=== PATIENT | male | born 1970 | race Caucasian/White ===

== ENCOUNTER → 2020-10-21 10:31 | Outpatient (BNVA) | payer MEDICAID, SELFPAY | PROVIDERS: PCP Internal Medicine; Visit Provider Surgery Vascular Surgery | DX: I83.11 Varicose veins of right lower extremity with inflammation (principal) | CPT/HCPCS: 99202 ==

== ENCOUNTER 2020-10-26 13:09 | Outpatient (REF) | payer MEDICAID, SELFPAY ==
--- NOTE | ~2020-10-26 | US_ITS ---
EXAMINATION: US VENOUS ULTRASOUND WITH DOPPLER LOWER EXTREMITY, BILATERAL CLINICAL INFORMATION: Varicose veins of right lower extremity with inflammation. COMPARISON: None TECHNIQUE: Bilateral lower extremity venous insufficiency ultrasound was performed with velocity measurements. Color-flow Doppler imaging was performed. Limited assessment of the deep system was performed as well. FINDINGS: There is no evidence of deep venous thrombosis within the visualized bilateral common femoral, mid femoral and popliteal veins. There is no evidence of reflux within the deep venous system. RIGHT SIDE: GREATER SAPHENOUS VEIN: The right saphenofemoral junction measures 0.8 cm. The reflux time is 1932 ms. Proximal thigh measures 0.6 cm. Reflux time is 0 ms. Mid thigh measures 0.5 cm. Reflux time is 3476 ms. Above-knee measures 0.6 cm. Reflux time is 3196 ms. At the knee measures 0.6 cm. Reflux time is 3212 ms. Below the knee measures 0.5 cm. Reflux time is 0 ms. Mid calf measures 0.3 cm. Reflux time is 0 ms. At the level of the ankle it measures 0.3 cm. Reflux time is 0 ms. SMALL SAPHENOUS VEIN: The upper right small saphenous vein measures 0.1 cm. Reflux time is 0 ms. The lower small saphenous vein measures 0.2 cm. Reflux time is 0 ms. There are several varicose veins identified. This includes a proximal varicosity to the great saphenous vein which measures 0.35 cm without significant reflux. There is a mid thigh varicosity from the great saphenous vein which measures 0.8 cm in diameter and has reflux time of 1256 ms. There are several varicosities at the knee, the largest measures 0.6 cm in diameter and has reflux time of 3336 ms. There are proximal calf varicosities which measure 0.4 cm and 0.34 cm in diameter with reflux times of 1844 ms and 3140 ms, respectively. There is a tiny accessory saphenous vein which measures 2 mm in diameter. Incidental note of a morphologically normal, though prominent right inguinal lymph node which measures 2.4 x 0.7 cm. LEFT SIDE: GREATER SAPHENOUS VEIN: The left saphenofemoral junction measures 0.5 cm. The reflux time is 0 ms. Proximal thigh measures 0.6 cm. Reflux time is 0 ms. Mid thigh measures 0.3 cm. Reflux time is 0 ms. Above-knee measures 0.3 cm. Reflux time is 0 ms. At the knee measures 0.5 cm. Reflux time is 3184 ms. Below the knee measures 0.4 cm. Reflux time is 580 ms. Mid calf measures 0.3 cm. Reflux time is 0 ms. At the level of the ankle it measures 0.3 cm. Reflux time is 0 ms. SMALL SAPHENOUS VEIN: The upper left small saphenous vein measures 0.2 cm. Reflux time is 0 ms. The lower small saphenous vein measures 0.2 cm. Reflux time is 0 ms. There is a 4 mm sandfill operator surface vein at the mid calf without demonstrable reflux. There is a proximal calf varicosity which measures 0.4 cm with reflux time of 1680 ms. There is a tiny accessory saphenous vein which measures 3 mm. In the left groin, there is a 1.9 x 0.7 cm lymph node. US/US venous duplex LE BI IMPRESSION: No evidence of deep venous thrombosis or deep venous reflux/venous insufficiency. On the right, there is reflux/venous insufficiency throughout the great saphenous vein from the level of the saphenofemoral junction to the knee. Multiple varicosities at the level of the thigh, knee and proximal calf are visualized, which demonstrate significant reflux. On the left, there is reflux/venous insufficiency within the mid to distal great saphenous vein about the level of the knee. There is at least one proximal calf varicosity which demonstrates significant reflux. Mildly prominent, though morphologically normal bilateral groin lymph nodes which may be reactive.
== END 2020-10-26 13:10 | disposition home or self-care (01) ==
LOC: HO.US 13:09
PROVIDERS: Visit Provider Surgery Vascular Surgery
DX: I83.11 Varicose veins of right lower extremity with inflammation (principal); I83.893 Varicose veins of bilateral lower extremities with other complications
CPT/HCPCS: 93970

== ENCOUNTER → 2020-11-09 10:50 | Outpatient (BNVA) | payer MEDICAID, SELFPAY | PROVIDERS: Visit Provider Surgery Vascular Surgery | DX: I83.11 Varicose veins of right lower extremity with inflammation (principal) | CPT/HCPCS: 99212 ==

== ENCOUNTER → 2020-11-12 08:14 | Outpatient (BNVA) | payer MEDICAID, SELFPAY | PROVIDERS: Visit Provider Surgery Vascular Surgery | DX: I83.11 Varicose veins of right lower extremity with inflammation (principal) | CPT/HCPCS: 36482; 36483 ==

== ENCOUNTER 2020-11-15 14:33 | Outpatient (REF) | payer MEDICAID, SELFPAY ==
--- NOTE | ~2020-11-15 | US_ITS ---
EXAMINATION: US VENOUS ULTRASOUND WITH DOPPLER LOWER EXTREMITY, RIGHT CLINICAL INFORMATION: Pain and swelling post venaseal COMPARISON: Previous exam 10/26/2020 TECHNIQUE: Ultrasound of the deep veins is performed from the hip to the calf with compression sonography and color and pulse Doppler assessment. Spectral analysis with color-flow imaging is performed. FINDINGS: There is normal venous compression and respiratory variation and augmented flow. The visualized common femoral vein, superficial femoral vein, profunda femoral vein, popliteal vein, and the trifurcation region shows no evidence of deep venous thrombosis. There is echogenic material seen in the right greater saphenous vein post venaseal procedure. This is 1.2 cm from the saphenofemoral junction. The right greater saphenous vein appears occluded. There is no popliteal fossa cyst. . US/US venous duplex LE RT IMPRESSION: No DVT demonstrated in the right lower extremity. Echogenic material in the right greater saphenous vein 1.2 cm from the saphenofemoral junction post venaseal procedure.
== END 2020-11-15 14:34 | disposition home or self-care (01) ==
LOC: HO.HMGCX 14:33
PROVIDERS: PCP Family Medicine; Visit Provider Surgery Vascular Surgery
DX: M79.604 Pain in right leg (principal); Z98.890 Other specified postprocedural states
CPT/HCPCS: 93971

== ENCOUNTER → 2020-12-16 10:56 | Outpatient (BNVA) | payer MEDICAID, SELFPAY | PROVIDERS: PCP Family Medicine; Visit Provider Surgery Vascular Surgery | DX: I83.11 Varicose veins of right lower extremity with inflammation (principal) | CPT/HCPCS: 99212 ==

== ENCOUNTER 2022-11-30 16:56 | Emergency (ER) | payer MEDICAID, SELFPAY ==
--- NOTE | ~2022-11-30 | US_ITS ---
EXAMINATION: US ABDOMEN LIMITED CLINICAL INFORMATION: Elevated LFTs.. COMPARISON: None available. TECHNIQUE: Real-time imaging of the right upper quadrant abdominal viscera. Color Doppler exam used. FINDINGS: PANCREAS: Pancreatic head and body visualized are normal. No mass or evidence of inflammation. Pancreatic duct is slightly prominent measuring 0.5 cm LIVER: Mild hepatomegaly. Right lobe of liver measures 20.2 cm. The liver contour is normal. Parenchymal echogenicity is normal. No focal hepatic lesion. There is no intrahepatic biliary duct dilatation seen. GALLBLADDER: Gallbladder is partially filled. Gallbladder wall thickened with pericholecystic fluid. No gallstones seen. Negative ultrasound Moon's sign. COMMON BILE DUCT: Normal in caliber measuring 0.3 cm in diameter. RIGHT KIDNEY: Mild fullness of the renal pelvis No hydronephrosis. No renal calculi or focal parenchymal lesions. The kidney measures 10.0 cm in maximum dimension. FREE FLUID: Small volume of abdominal ascites around the liver. This can account for the pericholecystic fluid and the Gallbladder wall thickening. US/US abdomen limited IMPRESSION: 1. Mild hepatomegaly. 2. Gallbladder wall thickening with pericholecystic fluid. No gallstones. Negative ultrasound Moon's sign. Findings are nonspecific. This could be related to the patient's liver disease. 3. Small volume of abdominal ascites around the liver.
--- NOTE | ~2022-11-30 | XR_ITS ---
EXAMINATION: XR CHEST CLINICAL INFORMATION: Hypertension COMPARISON: None available. TECHNIQUE: 2 views of the chest were obtained. FINDINGS: No significant abnormality is noted involving the heart, lungs, mediastinum, bony thorax or soft tissues. XR/XR chest 2V IMPRESSION: Unremarkable examination.
--- NOTE | ~2022-11-30 | US_ITS ---
EXAMINATION: US VENOUS ULTRASOUND WITH DOPPLER LOWER EXTREMITY, BILATERAL CLINICAL INFORMATION: Bilateral lower extremity pain and swelling COMPARISON: None available. TECHNIQUE: Ultrasound of the deep veins is performed from the hip to the calf with compression sonography and color and pulse Doppler assessment. Spectral analysis with color-flow imaging is performed. FINDINGS: RIGHT: There is normal venous compression and respiratory variation and augmented flow. The visualized common femoral vein, superficial femoral vein, profunda femoral vein, popliteal vein, and the trifurcation region shows no evidence of deep venous thrombosis. There is no significant popliteal fossa cyst. LEFT: There is normal venous compression and respiratory variation and augmented flow. The visualized common femoral vein, superficial femoral vein, profunda femoral vein, popliteal vein, and the trifurcation region shows no evidence of deep venous thrombosis. There is no significant popliteal fossa cyst. If the patient's symptoms persist, followup ultrasound in 5 days 7 days might be of value to exclude proximal propagation from a non-visualized calf vein. US/US venous duplex LE BI IMPRESSION: No DVT demonstrated in either lower extremity.
--- NOTE | 2022-11-30 17:08 | ED_ITS ---
HPI - Skin/Abscess/Foreign Bdy General Chief complaint: Extremity Injury, Lower <Mariam Rosales NP - Last Filed: 11/30/22 17:20> Stated complaint: Swollen Legs Infection? <Mariam Rosales NP - Last Filed: 11/30/22 17:20> Time Seen by Provider: 11/30/22 17:21 <Mariam Rosales NP - Last Filed: 11/30/22 17:20> Source: patient <Ingris Narayanan MD - Last Filed: 11/30/22 23:07> Mode of arrival: ambulatory <Ingris Narayanan MD - Last Filed: 11/30/22 23:07> Limitations: no limitations <Ingris Narayanan MD - Last Filed: 11/30/22 23:07> History of Present Illness HPI narrative: Patient comes to the emergency room complaining of lower extremity pain and swelling that started 1 week ago. Patient denies any trauma. Also, patient states that for the last 2 weeks, patient has been getting short of breath with exertion. 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 When he is doing his rounds, he feels short of breath after a few minutes walking. Patient denies any chest pain ever. Patient denies any nausea vomiting diarrhea, no URI or UTI symptoms, no abdominal pain. Patient admits to drinking alcohol daily. When patient arrived in triage, his blood pressure was in the 70s, when it was recheck in his room, it was in the mid 90s. Patient takes lisinopril daily for hypertension. <Ingris Narayanan MD - Last Filed: 11/30/22 23:07> Related Data Home medications: Home Medications Medication Instructions Recorded Confirmed buprenorphine 8 mg-naloxone 2 mg 1 film buccal Q24H 10/21/20 sublingual film (Suboxone) lisinopril 20 mg tablet 20 mg PO DAILY 10/21/20 naloxone 4 mg/actuation nasal 4 mg intranasal Q2M PRN 10/21/20 spray (Narcan) nicotine (polacrilex) 4 mg gum 4 mg buccal Q2H 10/21/20 trazodone 100 mg tablet 100 mg PO BEDTIME PRN 10/21/20 varenicline 0.5 mg tablet (Chantix) 0.5 mg PO DAILY 10/21/20 <Mariam Rosales NP - Last Filed: 11/30/22 17:20> Allergies/Adverse reactions: Allergies Allergy/AdvReac Type Severity Reaction Status Date / Time No Known Allergies Allergy Verified 11/30/22 17:08 <Mariam Rosales NP - Last Filed: 11/30/22 17:20> [facility] Past Medical History Medical History: Medical History Alcoholism Varicose veins of both lower extremities <Mariam Rosales NP - Last Filed: 11/30/22 17:20> Social History Social History: Social History Use of substances other than those prescribed or required for medical reasons: No Advance Directives: No Advance Directives Information Provided: Yes <Mariam Rosales NP - Last Filed: 11/30/22 17:20> Physical Exam Vital Signs: Vital Signs: Last Vital Signs Temp 97.2 F 11/30/22 17:09 Pulse 90 12/01/22 00:39 Resp 18 12/01/22 00:39 BP 100/67 12/01/22 00:39 Pulse Ox 96 12/01/22 00:39 O2 Del Method Room Air 12/01/22 00:39 BMI result Body Mass Index 20.6 <Mariam Rosales NP - Last Filed: 11/30/22 17:20> Vital Signs: Last Vital Signs Temp 97.2 F 11/30/22 17:09 Pulse 90 12/01/22 00:39 Resp 18 12/01/22 00:39 BP 100/67 12/01/22 00:39 Pulse Ox 96 12/01/22 00:39 O2 Del Method Room Air 12/01/22 00:39 BMI result Body Mass Index 20.6 <Ingris Narayanan MD - Last Filed: 11/30/22 23:07> Course Course Course Narrative: This is rapid medical exam. Deferred additional HPI, ROS, PE to primary provider. 52 yo male with history of HTN, varicose veins, OUD on suboxone, former IVDA here with bilateral leg swelling x 1 week. No shortness of breath, chest pain, fever. WIll obtain labs, venous US, covid screen. -blood pressure x2 hypotensive in triage. Patient reports and feeling very weak and tired. He does report to drinking alcohol today. He also still using crack but denies any current IV drug use. He does have a history of former IV drug use. Patient will be brought immediately back to the emergency room for further evaluation <Mariam Rosales NP - Last Filed: 11/30/22 17:20> Medications Administered Discontinued Medications Generic Name Dose Route Start Last Admin Trade Name Freq PRN Reason Stop Dose Admin Sodium Chloride 1,000 mls @ 999 mls/hr 11/30/22 17:31 11/30/22 17:41 Ns IVCONT 11/30/22 18:31 999 mls/hr .Q1H1M ONE Administration <Mariam Rosales NP - Last Filed: 11/30/22 17:20> Medications Administered Discontinued Medications Generic Name Dose Route Start Last Admin Trade Name Freq PRN Reason Stop Dose Admin Sodium Chloride 1,000 mls @ 999 mls/hr 11/30/22 17:31 11/30/22 17:41 Ns IVCONT 11/30/22 18:31 999 mls/hr .Q1H1M ONE Administration <Ingris Narayanan MD - Last Filed: 11/30/22 23:07> Medical Decision Making Medical Decision Making MDM Narrative: -ultrasound of lower extremities show no DVT, lower extremity is likely secondary to liver pathology. -patient has elevated LFTs and elevated lactic acid, sepsis not suspected. -patient's LFTs are elevated, likely secondary to alcohol abuse. Ultrasound does not show cirrhosis or any acute pathology. -I discussed the patient with Dr. Black who evaluated the patient. Patient does not need to be admitted, patient can follow up with Gastroenterology. Patient was given information for follow-up with GI <Ingris Narayanan MD - Last Filed: 11/30/22 23:07> Differential Diagnosis Differential Diagnoses: The differential diagnosis associated with the presentation includes (Hepatitis, cirrhosis, alcoholism) <nIgris Narayanan MD - Last Filed: 11/30/22 23:07> Admission/Observation Consideration of admission/observation: Escalation of care including admission/observation considered (I consider admitting the patient for GI follow-up. However after discussing the patient with Dr. Hoang, we determined that this can be done outpatient.) <Ingris Narayanan MD - Last Filed: 11/30/22 23:07> Consult Healthcare Provider Management of the patient was discussed with: Hospitalist <Ingris Narayanan MD - Last Filed: 11/30/22 23:07> Lab Data MDM Lab Attestation statement: I reviewed the patient's lab results. <Ingris Narayanan MD - Last Filed: 11/30/22 23:07> Result Diagrams: 11/30/22 17:36 11/30/22 17:36 <Mariam Rosales NP - Last Filed: 11/30/22 17:20> Labs: Lab Results 11/30/22 11/30/22 11/30/22 Range/Units 17:36 17:36 17:36 WBC 6.5 (4.8-10.8) X10*3/uL RBC 3.14 L (4.60-5.80) X10*6/uL Hgb 10.3 L (14.0-18.0) g/dl Hct 29.9 L (42.0-52.0) % MCV 95.2 (80.0-98.0) fL MCH 32.8 (27.0-33.0) pg MCHC 34.4 (31.0-36.0) g/dl RDW 16.6 H (11.0-16.0) % Plt Count 91 L (160-400) X10*3/uL MPV 11.3 (9.4-12.4) fL Immature Gran % (Auto) 1.7 H (0.0-0.4) % Neut % (Auto) 66.2 (45-73) % Lymph % (Auto) 18.0 L (20-40) % [place] % (Auto) 13.4 H (2-11) % Eos % (Auto) 0.2 (0-4) % Baso % (Auto) 0.5 (0-2) % Lymph # (Auto) 1.2 (1.2-4.9) X10*3/uL [place] # (Auto) 0.9 (0.1-1.2) X10*3/uL Eos # (Auto) 0.0 (0.0-0.4) X10*3/uL Baso # (Auto) 0.0 (0.0-0.2) X10*3/uL Abs Immat Gran (auto) 0.11 H (0.00-0.03) X10*3/uL Absolute Neuts (auto) 4.3 (2.0-8.3) x10*3/uL Absolute Nucleated RBC 0.000 (0.0-0.012) X10*3/uL Nucleated RBC % (auto) 0.0 (0.0-0.2) /100WBC Smear Tech's Comments VERIFIED Sodium 135 (135-145) mmol/L Potassium 3.7 (3.3-5.1) mmol/L Chloride 101 (96-108) mmol/L Carbon Dioxide 25 (22-29) mmol/L Anion Gap 13 (12-20) BUN 21 H (9-16) mg/dL Creatinine 0.88 (0.5-1.4) mg/dL Estim Creat Clear Calc 78.1 Estimated GFR > 60 Random Glucose 108 (60-115) mg/dL Lactic Acid (0.5-2.0) mmol/L Lactic Acid F/U @ 2Hr (0.5-2.0) mmol/L Calcium 8.1 L (8.4-10.2) mg/dL Magnesium 1.9 (1.6-2.6) mg/dL Total Bilirubin 10.6 H (0.0-1.0) mg/dL Direct Bilirubin 7.4 H (0.0-0.5) mg/dL AST 449 H (5-37) U/L ALT 208 H (0-40) U/L Alkaline Phosphatase 359 H (39-117) U/L Troponin I High Sens (<3.5-35.0) ng/L B-Natriuretic Peptide 71 (<100) pg/mL Total Protein 6.2 L (6.5-8.0) g/dL Albumin 2.1 L (3.5-5.0) g/dL COVID-19 (MYLA) (Negative) COVID-19 Clin Com Hepatitis A IgM Ab (Nonreactive) Hep Bs Antigen (Negative) Hep Bs Antibody (Nonreactive) Hep B Core Total Ab (Nonreactive) Hep B Core IgM Ab Hepatitis C Ab (EIA) (Nonreactive) 04/13/23 04/13/23 04/13/23 Range/Units 17:36 17:36 17:36 WBC (4.8-10.8) X10*3/uL RBC (4.60-5.80) X10*6/uL Hgb (14.0-18.0) g/dl Hct (42.0-52.0) % MCV (80.0-98.0) fL MCH (27.0-33.0) pg MCHC (31.0-36.0) g/dl RDW (11.0-16.0) % Plt Count (160-400) X10*3/uL MPV (9.4-12.4) fL Immature Gran % (Auto) (0.0-0.4) % Neut % (Auto) (45-73) % Lymph % (Auto) (20-40) % [place] % (Auto) (2-11) % Eos % (Auto) (0-4) % Baso % (Auto) (0-2) % Lymph # (Auto) (1.2-4.9) X10*3/uL [place] # (Auto) (0.1-1.2) X10*3/uL Eos # (Auto) (0.0-0.4) X10*3/uL Baso # (Auto) (0.0-0.2) X10*3/uL Abs Immat Gran (auto) (0.00-0.03) X10*3/uL Absolute Neuts (auto) (2.0-8.3) x10*3/uL Absolute Nucleated RBC (0.0-0.012) X10*3/uL Nucleated RBC % (auto) (0.0-0.2) /100WBC Smear Tech's Comments Sodium (135-145) mmol/L Potassium (3.3-5.1) mmol/L Chloride (96-108) mmol/L Carbon Dioxide (22-29) mmol/L Anion Gap (12-20) BUN (9-16) mg/dL Creatinine (0.5-1.4) mg/dL Estim Creat Clear Calc Estimated GFR Random Glucose (60-115) mg/dL Lactic Acid 3.2 H* (0.5-2.0) mmol/L Lactic Acid F/U @ 2Hr (0.5-2.0) mmol/L Calcium (8.4-10.2) mg/dL Magnesium (1.6-2.6) mg/dL Total Bilirubin (0.0-1.0) mg/dL Direct Bilirubin (0.0-0.5) mg/dL AST (5-37) U/L ALT (0-40) U/L Alkaline Phosphatase (39-117) U/L Troponin I High Sens 13.6 (<3.5-35.0) ng/L B-Natriuretic Peptide (<100) pg/mL Total Protein (6.5-8.0) g/dL Albumin (3.5-5.0) g/dL COVID-19 (MYLA) Negative (Negative) COVID-19 Clin Com See Note Hepatitis A IgM Ab (Nonreactive) Hep Bs Antigen (Negative) Hep Bs Antibody (Nonreactive) Hep B Core Total Ab (Nonreactive) Hep B Core IgM Ab Hepatitis C Ab (EIA) (Nonreactive) 11/30/22 11/30/22 Range/Units 21:07 21:07 WBC (4.8-10.8) X10*3/uL RBC (4.60-5.80) X10*6/uL Hgb (14.0-18.0) g/dl Hct (42.0-52.0) % MCV (80.0-98.0) fL MCH (27.0-33.0) pg MCHC (31.0-36.0) g/dl RDW (11.0-16.0) % Plt Count (160-400) X10*3/uL MPV (9.4-12.4) fL Immature Gran % (Auto) (0.0-0.4) % Neut % (Auto) (45-73) % Lymph % (Auto) (20-40) % [place] % (Auto) (2-11) % Eos % (Auto) (0-4) % Baso % (Auto) (0-2) % Lymph # (Auto) (1.2-4.9) X10*3/uL [place] # (Auto) (0.1-1.2) X10*3/uL Eos # (Auto) (0.0-0.4) X10*3/uL Baso # (Auto) (0.0-0.2) X10*3/uL Abs Immat Gran (auto) (0.00-0.03) X10*3/uL Absolute Neuts (auto) (2.0-8.3) x10*3/uL Absolute Nucleated RBC (0.0-0.012) X10*3/uL Nucleated RBC % (auto) (0.0-0.2) /100WBC Smear Tech's Comments Sodium (135-145) mmol/L Potassium (3.3-5.1) mmol/L Chloride (96-108) mmol/L Carbon Dioxide (22-29) mmol/L Anion Gap (12-20) BUN (9-16) mg/dL Creatinine (0.5-1.4) mg/dL Estim Creat Clear Calc Estimated GFR Random Glucose (60-115) mg/dL Lactic Acid (0.5-2.0) mmol/L Lactic Acid F/U @ 2Hr 3.5 H* (0.5-2.0) mmol/L Calcium (8.4-10.2) mg/dL Magnesium (1.6-2.6) mg/dL Total Bilirubin (0.0-1.0) mg/dL Direct Bilirubin (0.0-0.5) mg/dL AST (5-37) U/L ALT (0-40) U/L Alkaline Phosphatase (39-117) U/L Troponin I High Sens (<3.5-35.0) ng/L B-Natriuretic Peptide (<100) pg/mL Total Protein (6.5-8.0) g/dL Albumin (3.5-5.0) g/dL COVID-19 (MYLA) (Negative) COVID-19 Clin Com Hepatitis A IgM Ab Nonreactive (Nonreactive) Hep Bs Antigen Negative (Negative) Hep Bs Antibody REACTIVE (Nonreactive) Hep B Core Total Ab Reactive (Nonreactive) Hep B Core IgM Ab Cancelled Hepatitis C Ab (EIA) Reactive H (Nonreactive) <Mariam Rosales OIL DELIVERER - Last Filed: 11/30/22 17:20> Lab Results 11/30/22 11/30/22 11/30/22 Range/Units 17:36 17:36 17:36 WBC 6.5 (4.8-10.8) X10*3/uL RBC 3.14 L (4.60-5.80) X10*6/uL Hgb 10.3 L (14.0-18.0) g/dl Hct 29.9 L (42.0-52.0) % MCV 95.2 (80.0-98.0) fL MCH 32.8 (27.0-33.0) pg MCHC 34.4 (31.0-36.0) g/dl RDW 16.6 H (11.0-16.0) % Plt Count 91 L (160-400) X10*3/uL MPV 11.3 (9.4-12.4) fL Immature Gran % (Auto) 1.7 H (0.0-0.4) % Neut % (Auto) 66.2 (45-73) % Lymph % (Auto) 18.0 L (20-40) % [place] % (Auto) 13.4 H (2-11) % Eos % (Auto) 0.2 (0-4) % Baso % (Auto) 0.5 (0-2) % Lymph # (Auto) 1.2 (1.2-4.9) X10*3/uL [place] # (Auto) 0.9 (0.1-1.2) X10*3/uL Eos # (Auto) 0.0 (0.0-0.4) X10*3/uL Baso # (Auto) 0.0 (0.0-0.2) X10*3/uL Abs Immat Gran (auto) 0.11 H (0.00-0.03) X10*3/uL Absolute Neuts (auto) 4.3 (2.0-8.3) x10*3/uL Absolute Nucleated RBC 0.000 (0.0-0.012) X10*3/uL Nucleated RBC % (auto) 0.0 (0.0-0.2) /100WBC Smear Tech's Comments VERIFIED Sodium 135 (135-145) mmol/L Potassium 3.7 (3.3-5.1) mmol/L Chloride 101 (96-108) mmol/L Carbon Dioxide 25 (22-29) mmol/L Anion Gap 13 (12-20) BUN 21 H (9-16) mg/dL Creatinine 0.88 (0.5-1.4) mg/dL Estim Creat Clear Calc 78.1 Estimated GFR > 60 Random Glucose 108 (60-115) mg/dL Lactic Acid (0.5-2.0) mmol/L Lactic Acid F/U @ 2Hr (0.5-2.0) mmol/L Calcium 8.1 L (8.4-10.2) mg/dL Magnesium 1.9 (1.6-2.6) mg/dL Total Bilirubin 10.6 H (0.0-1.0) mg/dL Direct Bilirubin 7.4 H (0.0-0.5) mg/dL AST 449 H (5-37) U/L ALT 208 H (0-40) U/L Alkaline Phosphatase 359 H (39-117) U/L Troponin I High Sens (<3.5-35.0) ng/L B-Natriuretic Peptide 71 (<100) pg/mL Total Protein 6.2 L (6.5-8.0) g/dL Albumin 2.1 L (3.5-5.0) g/dL COVID-19 (MYLA) (Negative) COVID-19 Clin Com Hepatitis A IgM Ab (Nonreactive) Hep Bs Antigen (Negative) Hep Bs Antibody (Nonreactive) Hep B Core Total Ab (Nonreactive) Hep B Core IgM Ab Hepatitis C Ab (EIA) (Nonreactive) 11/30/22 11/30/22 11/30/22 Range/Units 17:36 17:36 17:36 WBC (4.8-10.8) X10*3/uL RBC (4.60-5.80) X10*6/uL Hgb (14.0-18.0) g/dl Hct (42.0-52.0) % MCV (80.0-98.0) fL MCH (27.0-33.0) pg MCHC (31.0-36.0) g/dl RDW (11.0-16.0) % Plt Count (160-400) X10*3/uL MPV (9.4-12.4) fL Immature Gran % (Auto) (0.0-0.4) % Neut % (Auto) (45-73) % Lymph % (Auto) (20-40) % [place] % (Auto) (2-11) % Eos % (Auto) (0-4) % Baso % (Auto) (0-2) % Lymph # (Auto) (1.2-4.9) X10*3/uL [place] # (Auto) (0.1-1.2) X10*3/uL Eos # (Auto) (0.0-0.4) X10*3/uL Baso # (Auto) (0.0-0.2) X10*3/uL Abs Immat Gran (auto) (0.00-0.03) X10*3/uL Absolute Neuts (auto) (2.0-8.3) x10*3/uL Absolute Nucleated RBC (0.0-0.012) X10*3/uL Nucleated RBC % (auto) (0.0-0.2) /100WBC Smear Tech's Comments Sodium (135-145) mmol/L Potassium (3.3-5.1) mmol/L Chloride (96-108) mmol/L Carbon Dioxide (22-29) mmol/L Anion Gap (12-20) BUN (9-16) mg/dL Creatinine (0.5-1.4) mg/dL Estim Creat Clear Calc Estimated GFR Random Glucose (60-115) mg/dL Lactic Acid 3.2 H* (0.5-2.0) mmol/L Lactic Acid F/U @ 2Hr (0.5-2.0) mmol/L Calcium (8.4-10.2) mg/dL Magnesium (1.6-2.6) mg/dL Total Bilirubin (0.0-1.0) mg/dL Direct Bilirubin (0.0-0.5) mg/dL AST (5-37) U/L ALT (0-40) U/L Alkaline Phosphatase (39-117) U/L Troponin I High Sens 13.6 (<3.5-35.0) ng/L B-Natriuretic Peptide (<100) pg/mL Total Protein (6.5-8.0) g/dL Albumin (3.5-5.0) g/dL COVID-19 (MYLA) Negative (Negative) COVID-19 Clin Com See Note Hepatitis A IgM Ab (Nonreactive) Hep Bs Antigen (Negative) Hep Bs Antibody (Nonreactive) Hep B Core Total Ab (Nonreactive) Hep B Core IgM Ab Hepatitis C Ab (EIA) (Nonreactive) 11/30/22 11/30/22 Range/Units 21:07 21:07 WBC (4.8-10.8) X10*3/uL RBC (4.60-5.80) X10*6/uL Hgb (14.0-18.0) g/dl Hct (42.0-52.0) % MCV (80.0-98.0) fL MCH (27.0-33.0) pg MCHC (31.0-36.0) g/dl RDW (11.0-16.0) % Plt Count (160-400) X10*3/uL MPV (9.4-12.4) fL Immature Gran % (Auto) (0.0-0.4) % Neut % (Auto) (45-73) % Lymph % (Auto) (20-40) % [place] % (Auto) (2-11) % Eos % (Auto) (0-4) % Baso % (Auto) (0-2) % Lymph # (Auto) (1.2-4.9) X10*3/uL [place] # (Auto) (0.1-1.2) X10*3/uL Eos # (Auto) (0.0-0.4) X10*3/uL Baso # (Auto) (0.0-0.2) X10*3/uL Abs Immat Gran (auto) (0.00-0.03) X10*3/uL Absolute Neuts (auto) (2.0-8.3) x10*3/uL Absolute Nucleated RBC (0.0-0.012) X10*3/uL Nucleated RBC % (auto) (0.0-0.2) /100WBC Smear Tech's Comments Sodium (135-145) mmol/L Potassium (3.3-5.1) mmol/L Chloride (96-108) mmol/L Carbon Dioxide (22-29) mmol/L Anion Gap (12-20) BUN (9-16) mg/dL Creatinine (0.5-1.4) mg/dL Estim Creat Clear Calc Estimated GFR Random Glucose (60-115) mg/dL Lactic Acid (0.5-2.0) mmol/L Lactic Acid F/U @ 2Hr 3.5 H* (0.5-2.0) mmol/L Calcium (8.4-10.2) mg/dL Magnesium (1.6-2.6) mg/dL Total Bilirubin (0.0-1.0) mg/dL Direct Bilirubin (0.0-0.5) mg/dL AST (5-37) U/L ALT (0-40) U/L Alkaline Phosphatase (39-117) U/L Troponin I High Sens (<3.5-35.0) ng/L B-Natriuretic Peptide (<100) pg/mL Total Protein (6.5-8.0) g/dL Albumin (3.5-5.0) g/dL COVID-19 (MYLA) (Negative) COVID-19 Clin Com Hepatitis A IgM Ab Nonreactive (Nonreactive) Hep Bs Antigen Negative (Negative) Hep Bs Antibody REACTIVE (Nonreactive) Hep B Core Total Ab Reactive (Nonreactive) Hep B Core IgM Ab Cancelled Hepatitis C Ab (EIA) Reactive H (Nonreactive) <Ingris Narayanan MD - Last Filed: 11/30/22 23:07> Discharge Plan Discharge Clinical Impression: Bilateral lower extremity edema, Elevated LFTs, Alcoholism <Mariam Rosales NP - Last Filed: 11/30/22 17:20> Patient Disposition: Home, Self-Care <Mariam Rosales NP - Last Filed: 11/30/22 17:20> Instructions: Leg Edema (ED) <Mariam Rosales NP - Last Filed: 11/30/22 17:20> Additional Instructions: Please follow-up with your primary care physician tomorrow. If you have any worsening or new symptoms, please return to the emergency room or call 911 <Mariam Rosales NP - Last Filed: 11/30/22 17:20> Referrals: Jose Jj MD [Physician] - 12/04/22 <Mariam Rosales NP - Last Filed: 11/30/22 17:20> Interventions: ED Discharge Assessment Last Done: 12/01/22 00:40 <Mariam Rosales NP - Last Filed: 11/30/22 17:20> Discharge Date/Time: 12/01/22 00:41 <Mariam Rosales NP - Last Filed: 11/30/22 17:20>
[2022-11-30 17:09] VITALS: BP 77/51; PULSE 103; RESP 18; TEMP 36.2; O2SAT 95; BMI 20.6
--- NOTE | 2022-11-30 17:17 | ECG_ITS ---
Test Reason : HYPOTENSIVE Blood Pressure : / mmHG Vent. Rate : 079 BPM Atrial Rate : 079 BPM P-R Int : 180 ms QRS Dur : 106 ms QT Int : 388 ms P-R-T Axes : 075 037 044 degrees QTc Int : 444 ms Normal sinus rhythm Low voltage QRS Nonspecific T wave abnormality Abnormal ECG No previous ECGs available Referred By: Mariam Rosales Electronically Signed By:KEMAL YANG MD
[2022-11-30] MEDS: 0.9 % Sodium Chloride 1,000 ML 999 ML IVCONT (17:41)
[2022-11-30 17:44] VITALS: BP 101/57; PULSE 86; RESP 14; O2SAT 94
[2022-11-30 17:48] LABS: Basophils Percent Auto 0.5 % (0-2); Eosinophils Percent Auto 0.2 % (0-4); Neutrophils Percent Auto 66.2 % (45-73); PLT CLUMP 1; SCAN SMEAR FLAG 1
[2022-11-30 17:49] LABS: Hematocrit 29.9 % (42.0-52.0); Hemoglobin 10.3 g/dl (14.0-18.0); Imm Gran Abs Auto 0.11 X10*3/uL (0.00-0.03); Imm Gran Pct Auto 1.7 % (0.0-0.4); Lymphocytes Absolute Auto 1.2 X10*3/uL (1.2-4.9); MANUAL DIFF FLAG SCAN; Mean Corpuscular HGB Conc 34.4 g/dl (31.0-36.0); Mean Corpuscular Hemoglobin 32.8 pg (27.0-33.0); Mean Corpuscular Volume 95.2 fL (80.0-98.0); Mean Platelet Volume 11.3 fL (9.4-12.4); Monocytes Absolute Auto 0.9 X10*3/uL (0.1-1.2); Monocytes Percent Auto 13.4 % (2-11); Neutrophils Absolute Auto 4.3 x10*3/uL (2.0-8.3); Red Blood Count 3.14 X10*6/uL (4.60-5.80); Red Cell Distribution Width 16.6 % (11.0-16.0)
[2022-11-30 17:58] LABS: Lactic Acid 3.2 mmol/L (0.5-2.0)
[2022-11-30 18:00] LABS: Alanine Aminotransferase 208 U/L (0-40); Albumin Level 2.1 g/dL (3.5-5.0); Alkaline Phosphatase 359 U/L (39-117); Anion Gap 13 (12-20); Aspartate Amino Transferase 449 U/L (5-37); Bilirubin Direct 7.4 mg/dL (0.0-0.5); Bilirubin Total 10.6 mg/dL (0.0-1.0); Blood Urea Nitrogen 21 mg/dL (9-16); Calcium 8.1 mg/dL (8.4-10.2); Carbon Dioxide 25 mmol/L (22-29); Chloride 101 mmol/L (96-108); Creatinine Clr Calc Pharmacy 78.1; Estimated Glomerular Filt Rate > 60; Glucose Random 108 mg/dL (60-115); Magnesium 1.9 mg/dL (1.6-2.6); Potassium 3.7 mmol/L (3.3-5.1); Sodium 135 mmol/L (135-145); Total Protein 6.2 g/dL (6.5-8.0)
--- NOTE | 2022-11-30 18:02 | PC.NURSE ---
Lower extremity pain, found to be hypotensive. Swelling noted to ankles and knees along with some bruising. IV established, labs drawn and sent. IV fluids infusing at this time. Ultrasound at bedside, call martino within reach
[2022-11-30 18:04] LABS: COVID-19 Test Negative (Negative); IDNOW Serial# BCCEAD1C
[2022-11-30 18:06] LABS: B Type Natriuretic Peptide 71 pg/mL (<100)
[2022-11-30 18:07] LABS: Troponin-I High Sensitivity 13.6 ng/L (<3.5-35.0)
[2022-11-30 18:08] LABS: Platelet Count 91 X10*3/uL (160-400); White Blood Count 6.5 X10*3/uL (4.8-10.8)
[2022-11-30 18:09] LABS: SLIDE REVIEW VERIFIED
--- NOTE | 2022-11-30 19:05 | PC.NURSE ---
Report received from Micheline FAULKNER.
[2022-11-30 19:23] VITALS: BP 105/61; PULSE 88; RESP 17; O2SAT 95
[2022-11-30 19:41] LABS: Reflex Lactate? Lactic Acid Added
[2022-11-30 20:55] VITALS: BP 104/57; BP 87/49; PULSE 106; PULSE 85
[2022-11-30 20:58] VITALS: BP 95/56; PULSE 95
[2022-11-30 21:00] VITALS: BP 95/56; PULSE 91; RESP 14; O2SAT 96
[2022-11-30 21:35] LABS: ~Lactic Acid-LAB USE ONLY 3.5 mmol/L (0.5-2.0)
[2022-11-30 23:13] LABS: Reflex Lactate? 2 Y
[2022-12-01 00:39] VITALS: BP 100/67; PULSE 90; RESP 18; O2SAT 96
[2022-12-01 09:11] LABS: HBS Num1 163.94 mIU/mL (0-7.99); HBc Num1 5.97 S/CO (0.00-0.79); HBsAGNum1 0.34 S/CO (0.00-0.99); Hepatitis A Antibody IgM 0.32 Index (0-0.79); Hepatitis B Surface Antigen Negative (Negative); ~HepC Num1 15.42 S/CO (0.00-0.79); ~Hepatitis A Antibody IgM Nonreactive (Nonreactive); ~Hepatitis B Surface Antibody REACTIVE (Nonreactive); ~Hepatitis C Antibody Reactive (Nonreactive)
[2022-12-01 11:07] LABS: HBc Num2 5.86 S/CO; HBc Num3 5.51 S/CO; Hepatitis B Core Antibody Reactive (Nonreactive)
== END 2022-12-01 00:41 | disposition home or self-care (01) ==
PROVIDERS: Nurse Practitioner Family; Emergency Provider Emergency Medicine; PCP Family Medicine
DX: R60.0 Localized edema (principal); R79.89 Other specified abnormal findings of blood chemistry; R06.02 Shortness of breath; R07.89 Other chest pain; R10.30 Lower abdominal pain, unspecified; F10.20 Alcohol dependence, uncomplicated; Y90.9 Presence of alcohol in blood, level not specified; Z20.822 Contact with and (suspected) exposure to COVID-19; Z20.828 Contact with and (suspected) exposure to other viral communicable diseases; Z79.899 Other long term (current) drug therapy
CPT/HCPCS: 36415; 71046; 76705; 80048; 80076; 83605; 83735; 83880; 84484; 85025; 86704; 86706; 86709; 86803; 87040; 87340; 87635; 93005; 93970; 99285

== ENCOUNTER 2023-04-22 15:51 | Inpatient (IN) | payer OTHER, SELFPAY ==
--- NOTE | ~2023-04-22 | CT_ITS ---
EXAMINATION: CT HEAD WITHOUT CONTRAST CLINICAL INFORMATION: Recent head trauma. New psychosis. COMPARISON: None. TECHNIQUE: Contiguous axial imaging was performed from the skullbase to vertex without intravenous administration of contrast. This CT examination was performed using dose optimization techniques as appropriate, variously including the following: *Automated exposure control *Adjustment of mA and/or kV according to patient size (this includes techniques or standardized protocols for targeted exams where dose is matched to indication/reason for exam; i.e. extremities or head) *Use of iterative reconstruction technique DLP: 644 mGy-cm. FINDINGS: There is no evidence of acute intracranial hemorrhage or territorial infarction. No abnormal mass effect or midline shift is seen. Mistry to white matter differentiation is well preserved. No extra-axial fluid collections are identified. There is mild generalized parenchymal volume loss for patient age. The ventricles are normal in size. There is no abnormal attenuation within the brain parenchyma. The osseous structures and soft tissues are normal. The mastoid air cells are well aerated. Retention cyst and mild mucosal thickening partially visualized in the right maxillary antrum. CT/CT head/brain wo IV con IMPRESSION: No acute intracranial pathology.
[2023-04-22 16:08] VITALS: BMI 21.6
[2023-04-22 16:30] VITALS: BP 155/94; PULSE 79; RESP 18; TEMP 36.9; O2SAT 99
[2023-04-22 18:06] LABS: Appearance Urine Clear; Color Urine Yellow; Glucose Urine UA Negative (Negative); Leukocyte Esterase Urine Negative (Negative); Nitrite Urine Negative (Negative); Urine Blood Negative (Negative); Urine Ketones Negative (Negative); Urine Protein Negative (Neg-Trace)
[2023-04-22 18:11] LABS: Bacteria Urine None Seen (None Seen); Hyaline Casts Urine 0-2 /LPF (0-2); RBC Urine 0-2 /HPF (0-2); Squamous Epithelial Cell Urine 0-2 /HPF (0-2); WBC Urine 0-5 /HPF (0-5)
[2023-04-22 18:18] LABS: Amphetamine Screen Urine Not Detected (Not Detect); Barbiturates, Urine Not Detected (Not Detect); Benzodiazepines Screen Urine Not Detected (Not Detect); Cannabinoid Screen Urine Not Detected (Not Detect); Cocaine Screen Urine POSITIVE (Not Detect); Fentanyl, urine Not Detected (Not Detect); Opiate Screen Urine Not Detected (Not Detect); Phencyclidine Screen Urine Not Detected (Not Detect)
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
[2023-04-22] MEDS: Docusate Sodium 100 MG CAPSULE PO (21:22)
[2023-04-22 21:23] VITALS: BP 157/83; PULSE 81; TEMP 36.8; O2SAT 94
[2023-04-22] MEDS: traZODone HCL 50 MG TABLET PO (21:56)
--- NOTE | 2023-04-23 07:14 | PC.NURSE ---
drug paraphernalia kit-clean, unused kit taken by security and disposed of.
[2023-04-23 07:41] LABS: Alanine Aminotransferase 18 U/L (0-40); Albumin Level 3.2 g/dL (3.5-5.0); Alkaline Phosphatase 68 U/L (39-117); Anion Gap 8 (12-20); Aspartate Amino Transferase 24 U/L (5-37); Bilirubin Total 0.2 mg/dL (0.0-1.0); Blood Urea Nitrogen 14 mg/dL (9-16); Calcium 9.5 mg/dL (8.4-10.2); Carbon Dioxide 30 mmol/L (22-29); Chloride 104 mmol/L (96-108); Cholesterol 126 mg/dL (<200); Creatinine Clr Calc Pharmacy 90.1; Estimated Glomerular Filt Rate > 60; Glucose Fasting 98 mg/dL (60-99); HDL Cholesterol 35 mg/dL (>40); LDL Cholesterol Calculated 62 mg/dL (<100); Potassium 4.1 mmol/L (3.3-5.1); Sodium 138 mmol/L (135-145); Total Protein 6.5 g/dL (6.5-8.0); Triglycerides 147 mg/dL (<150)
[2023-04-23 07:55] LABS: Thyroid Stimulating Hormone 2.28 uIU/mL (0.32-4.0)
--- NOTE | 2023-04-23 08:27 | P.HPPS_ITS ---
HPI Date of Service: 04/23/23 Chief Complaint: Unspecified anxiety disorder Sources of Information: patient interviewed, chart reviewed and crisis/core team assessment reviewed HPI Subjective Notes: Conditional Voluntary Healthcare Proxy: No Guardianship: No Medical Problems Affecting Mental Status: No Narrative: Jacque is a 53-year-old , single, father of 2. This is his 1st psychiatric admission. 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 He is 100% convinced that these are happening and not imagined. He does have history of heroin use and dependence but has been heroin free for 3 years and is on Suboxone 03/21 t.i.d.. In the past 3 months he has been using c rack cocaine and when questioned whether he would consider that it may be related to that he was adamantly against that belief. He is not on any psychotropics and has not been in the past. He denies any other substances including alcohol. Prior to going to the emergency room he asked somebody in a restaurant to call an ambulance because he was having thoughts of going to a bridge in jumping off. No prior history of suicide attempts. He has been eating and sleeping adequately. He denies any recent triggers or stressors. Because of his condition he lost his job and was unable to pay his rent and he has been homeless. Past Psychiatric History: None Medical Evaluation Reviewed: Hospitalist Feroz Pending [facility] Medical History (Updated 04/23/23 @ 08:40 by Emerson Euceda MD) Alcoholism Heroin addiction Varicose veins of both lower extremities Narrative: Hypertension that is intermittently treated with Lasix and lisinopril when he picks up the prescriptions. Family History: None known Social History: He is 1 of 3 siblings. He was born and raised in [place]. His parents are both alive and live in [place]. He denies any history of abuse. He dropped out of school at 11th grade and has been in the [place]. He has 2 children that he has nothing to do with and does not know where they live. He has never . 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 He was unable to pay his rent and lost his apartment and has been homeless. Substance History: Heroin-in remission crack cocaine in the past 3 months Trauma History: None Diagnostics Vital Signs (24Hr): Vital Signs - 24 hr 04/22/23 16:30 04/22/23 21:23 Temperature 98.4 F 98.3 F Pulse Rate 79 81 Respiratory Rate 18 Blood Pressure 155/94 H 157/83 H Pulse Oximetry 99 94 Oxygen Delivery Method Room Air Room Air BMI result Body Mass Index 21.6 Labs 04/23/23 07:08 Labs: Laboratory Results - last 48 hr 04/22/23 04/22/23 04/23/23 17:45 17:45 07:08 Sodium 138 Potassium 4.1 Chloride 104 Carbon Dioxide 30 H Anion Gap 8 L BUN 14 Creatinine 0.79 Estim Creat Clear Calc 90.1 Estimated GFR > 60 Fasting Glucose 98 Calcium 9.5 D Total Bilirubin 0.2 AST 24 ALT 18 Alkaline Phosphatase 68 Total Protein 6.5 Albumin 3.2 L Triglycerides 147 Cholesterol 126 LDL Cholesterol, Calc 62 HDL Cholesterol 35 L TSH 2.28 Urine Color Yellow Urine Appearance Clear Urine pH 7.0 Ur Specific [place] 1.020 Urine Protein Negative Urine Glucose (UA) Negative Urine Ketones Negative Urine Blood Negative Urine Nitrite Negative Ur Leukocyte Esterase Negative Urine RBC 0-2 Urine WBC 0-5 Ur Squamous Epith Cells 0-2 Urine Bacteria None Seen Hyaline Casts 0-2 Urine Opiates Screen Not Detected Urine Fentanyl Screen Not Detected Ur Barbiturates Screen Not Detected Ur Phencyclidine Scrn Not Detected Ur Amphetamines Screen Not Detected U Benzodiazepines Scrn Not Detected Urine Cocaine Screen POSITIVE H U Marijuana (THC) Screen Not Detected Meds/Allergies Meds Home Medications Medication Instructions Recorded Confirmed Type buprenorphine 8 mg-naloxone 2 mg 1 film buccal Q24H 10/21/20 History sublingual film (Suboxone) lisinopril 20 mg tablet 20 mg PO DAILY 10/21/20 History naloxone 4 mg/actuation nasal 4 mg intranasal Q2M PRN 10/21/20 History spray (Narcan) nicotine (polacrilex) 4 mg gum 4 mg buccal Q2H 10/21/20 History trazodone 100 mg tablet 100 mg PO BEDTIME PRN 10/21/20 History varenicline 0.5 mg tablet (Chantix) 0.5 mg PO DAILY 10/21/20 History Allergies Allergies Allergy/AdvReac Type Severity Reaction Status Date / Time No Known Allergies Allergy Verified 11/30/22 17:08 Mental Status Exam Mental Status Exam Narrative: In today's visit he was seen for his admission evaluation the day after he was admitted. He was seen with the help of an machinist supervisor because he speaks very little [place]. He is pleasant, cooperative and able to respond appropriately to questions. He was very adamant about his current experiences as being real and wanting to be ?hurt?. He does not believe that it may be related to his crack cocaine use. Speech is normal. No eye contact. Affect is appropriate. Moderate anxiety present. No acute signs of psychosis. Paranoid ideations and delusions present. He admits to having had suicidal ideations but denies any active ideations currently and is safe on the unit. No homicidal ideations. Cognitively appears to be intact on gross observation. Judgment is mostly intact. Assessment & Plan Assessment & Plan (1) Paranoia: Status: Acute Code(s): F22 - Delusional disorders (2) Crack cocaine use: Status: Acute Code(s): F14.90 - Cocaine use, unspecified, uncomplicated Plan In [place] meets criteria for hospital level of care for safety and treatment. Admission workup to be done. He will meet with his treatment team on 04/24/23. We discussed medication options and he was reluctantly accepting of a trial of Risperdal which we discussed including side effects. He did not believe that any medication could change his belief on the reality of the situation etc.. Patient educated on: diagnosis, medication risk/benefits and substance abuse Reason for continued inpatient stay Substantial Risk for: harm to self Statement Statement: I have reviewed the history and physical and performed a pertinent examination on my patient. No changes have occurred unless specified. If the History and Physical was not performed prior to admission, the Hospitalist's service will be consulted for completing the admission physical. Time Spent With Patient Time: Total time managing care of this patient today ____ minutes.
[2023-04-23] MEDS: Docusate Sodium 100 MG CAPSULE PO ×2 (08:43→21:49)
[2023-04-23] MEDS: Buprenorphine/Naloxone 8/2 mg FILM 1 FILM SUBLINGUAL ×3 (08:45→18:15)
[2023-04-23 08:55] VITALS: BP 135/96; PULSE 62; RESP 16; TEMP 37.3; O2SAT 96
--- NOTE | 2023-04-23 11:36 | HO.PM.IMCN ---
History of Present Illness Data of Consult Service Date: 04/23/23 Requesting physician: Emerson Euceda Primary Care Provider: [facility] HPI Reason for consult: medical H&P 53-year-old male with history of hypertension, history of hepatitis-C treated, history of alcohol use disorder in sustained remission, opioid dependence on Suboxone, and recent crack cocaine use admitted to Psychiatry with consult placed to hospital service for medical H and P. He has no complaints at this time. He does report smoking 12 cigarettes on a daily basis but declines any nicotine replacement therapy. He is on Lasix, spironolactone, and lactulose but denies any history of cirrhosis. Hepatic panel at [facility] ED was within normal limits as were hematology studies, renal function, electrolyte levels. Urine tox screen was positive for cocaine. Per nursing staff, darya has had several falls in the last 6 months. No significant injury. He is also reporting urinary urgency and decreased urine output per nursing. Review of Systems Review of Systems: General: No fevers, malaise, unintentional weight loss HEENT: No blurred vision, diplopia. No sore throat, nasal congestion, rhinorrhea, sinus pain, ear pain Cardiovascular: No chest pain, palpitations, or leg edema Respiratory: No shortness of breath, wheezing, cough GI: No abdominal pain, nausea, vomiting, diarrhea, constipation, melena, hematochezia : No dysuria, hematuria, increased urinary frequency, decreased urinary output MSK: No myalgia, back pain Neuro: No headaches, weakness, paresthesias Skin: No rashes or lesions [facility] Medical History Alcoholism Crack cocaine use Heroin addiction History of hepatitis C Hypertension Varicose veins of both lower extremities Social History Household Members: None Housing: Homeless Do you presently have visiting nurse or other home services: No Patient Tobacco Use Status: Current everyday Tobacco user Tobacco use type: Cigarette Cigarettes Per Day: 12 Patient Interested in Nicotine Replacement: No Patient Given Instructions on How to Stop Smoking: No Second Hand Smoke Exposure: No Use of substances other than those prescribed or required for medical reasons: Yes Substance Use Type: Crack/Cocaine Substance Use Frequency: Daily Last Used Substance: Days (ago) Last Used Substance Other:: 5 days ago Currently Displaying Signs/Symptoms of Drug Intoxication Withdrawal: No Any prior treatment program specific to substance use: No Have you been hit, kicked, punched, or otherwise hurt by someone within the past year? If so, by whom?: No Do you feel safe in your current relationship?: No Current Relationship Is there a partner from a previous relationship who is making you feel unsafe now?: No Are you made to feel afraid or neglected: No Advance Directives: No Advance Directives Information Provided: No Do you have thoughts of harming others: None Do you have a plan to hurt others: No Plan Recently lost weight without trying: No Eating poorly because of decreased appetite: No Nutrition Risks: Dental problems Poor oral hygiene: Yes service: No Sexual orientation: Unable to collect Meds Allergies Allergy/AdvReac Type Severity Reaction Status Date / Time No Known Allergies Allergy Verified 11/30/22 17:08 Active Medications: Current Medications Acetaminophen (Acetaminophen 325 Mg Tablet) 650 mg PO Q6H PRN PRN Reason: Headache/Pain Mild Scale (1-3) Al Hydroxide/Mg Hydroxide (Magnesium Hydrox/Alum Hydrox 30 Ml Oral.Susp) 30 ml PO Q6H PRN PRN Reason: Heartburn/Nausea Buprenorphine/Naloxone (Buprenorphine/Naloxone 8/2 Mg Film) 1 film SUBLINGUAL TID@0900,1300,1800 [facility] Last Admin: 04/23/23 08:45 Dose: 1 film Docusate Sodium (Docusate Sodium 100 Mg Capsule) 100 mg PO BID [facility] Last Admin: 04/23/23 08:43 Dose: 100 mg Hydroxyzine HCl (Hydroxyzine Hcl 25 Mg Tablet) 25 mg PO Q6H PRN PRN Reason: Anxiety Magnesium Hydroxide (Milk Of Magnesia 30 Ml Oral.Susp) 30 ml PO DAILY PRN PRN Reason: Constipation Nicotine Polacrilex (Nicotine Polacrilex 2 Mg Gum) 2 mg BUCCAL Q2H PRN PRN Reason: Nicotine Cravings Risperidone (Risperidone 1 Mg Tablet) 1 mg PO BEDTIME YULIET Trazodone HCl (Trazodone Hcl 50 Mg Tablet) 50 mg PO BEDTIME MRX1 PRN PRN Reason: Insomnia Last Admin: 04/22/23 21:56 Dose: 50 mg Home Medications Medication Instructions Recorded Confirmed Last Taken Type buprenorphine 8 mg-naloxone 2 mg 1 film buccal Q24H 10/21/20 Unknown History sublingual film (Suboxone) lisinopril 20 mg tablet 20 mg PO DAILY 10/21/20 Unknown History naloxone 4 mg/actuation nasal 4 mg intranasal Q2M PRN 10/21/20 Unknown History spray (Narcan) nicotine (polacrilex) 4 mg gum 4 mg buccal Q2H 10/21/20 Unknown History trazodone 100 mg tablet 100 mg PO BEDTIME PRN 10/21/20 Unknown History varenicline 0.5 mg tablet (Chantix) 0.5 mg PO DAILY 10/21/20 Unknown History Physical Exam Vital Signs and Narrative: Vital Signs: Last Vital Signs Temp 99.1 F 04/23/23 08:55 Pulse 62 04/23/23 08:55 Resp 16 04/23/23 08:55 BP 135/96 H 04/23/23 08:55 Pulse Ox 96 04/23/23 08:55 O2 Del Method Room Air 04/23/23 08:55 BMI result Body Mass Index 21.6 Constitutional - Awake and Alert, No apparent distress Eyes - PERRLA, EOMI Cardiovascular - S1S2, RRR, No edema Respiratory - Normal lung expansion, Normal respiratory effort, No respiratory distress, CTA bilaterally Gastrointestinal - NT / ND; +BS; No rebound or guarding Extremities - no calf tenderness bilaterally, no swelling Musculoskeletal - Normal inspection, normal ROM Skin - Warm/Dry Neurological - Alert & oriented x3, CN II-XII in tact, 5/5 strength BUE and BLE, gait/balance normal Psychological - Appropriate affect Results Labs 04/23/23 07:08 Labs: Laboratory Results - last 24 hr 04/22/23 04/22/23 04/23/23 17:45 17:45 07:08 Anion Gap 8 L Estim Creat Clear Calc 90.1 Estimated GFR > 60 Fasting Glucose 98 Calcium 9.5 D Total Bilirubin 0.2 AST 24 ALT 18 Alkaline Phosphatase 68 Total Protein 6.5 Albumin 3.2 L Triglycerides 147 Cholesterol 126 LDL Cholesterol, Calc 62 HDL Cholesterol 35 L TSH 2.28 Urine Color Yellow Urine Appearance Clear Urine pH 7.0 Ur Specific [place] 1.020 Urine Protein Negative Urine Glucose (UA) Negative Urine Ketones Negative Urine Blood Negative Urine Nitrite Negative Ur Leukocyte Esterase Negative Urine RBC 0-2 Urine WBC 0-5 Ur Squamous Epith Cells 0-2 Urine Bacteria None Seen Hyaline Casts 0-2 Urine Opiates Screen Not Detected Urine Fentanyl Screen Not Detected Ur Barbiturates Screen Not Detected Ur Phencyclidine Scrn Not Detected Ur Amphetamines Screen Not Detected U Benzodiazepines Scrn Not Detected Urine Cocaine Screen POSITIVE H U Marijuana (THC) Screen Not Detected Assessment and Plan (1) Routine medical exam: Status: Acute Plan 53-year-old male with history of hypertension, history of hepatitis-C treated, history of alcohol use disorder in sustained remission, opioid dependence on Suboxone, and recent crack cocaine use admitted to Psychiatry with consult placed to hospital service for medical H and P. #Paranoia/mood disorder -plan per psychiatry #polysubstance abuse -plan per psychiatry -continue suboxone #HTN -bp reasonably controlled -continue lasix, spironolactone, and lisinopril # recent falls -?r/t substance use -Gait/balance normal without ataxia #Lower urinary tract symptoms -UA unremarkable -suspect r/t BPH -Pt did not report urinary symptoms to me, but did report to nursing -Consider adding tamsulosin 0.4 mg daily if continues reporting symptoms -otherwise outpatient follow-up #Nicotine dependence -declines nrt -smoking cessation counseling Thank you for allowing me to participate in this consult. Signing off at this time. Please do not hesitate to call for further questions. Time Spent With Patient Time: Total time managing care of this patient today ____ minutes.
[2023-04-23 20:35] VITALS: BP 135/79; PULSE 75; RESP 16; TEMP 36.8; O2SAT 99
[2023-04-23] MEDS: risperiDONE 1 MG TABLET PO (21:49)
[2023-04-24 06:00] VITALS: BP 114/76; PULSE 70; RESP 18; TEMP 37.4; O2SAT 97
[2023-04-24] MEDS: lisinopriL 10 MG TABLET PO (09:25)
[2023-04-24] MEDS: Buprenorphine/Naloxone 8/2 mg FILM 1 FILM SUBLINGUAL ×3 (09:25→18:57)
[2023-04-24] MEDS: Docusate Sodium 100 MG CAPSULE PO ×2 (09:25→21:34)
--- NOTE | 2023-04-24 16:15 | HO.PSYCHPN ---
Subjective Subjective Date of Service: 04/24/23 Reason For Visit: Unspecified anxiety disorder Interim History: seen with greige mender. discussing recent Hx of people taking pictures of him, kids crying when they see him, experiencing menace and animosity from strangers. he seems to indicate that that has not happened here on [facility], but that it did happen somewhat at [facility] ED before he got here. reported that such Sx have been occurring for 22 days. once cocaine use was broached, he reported that these symptoms started long before his cocaine use (cocaine use reportedly began about a month ago). he agreed to stay for several days and get sleep and take some medication. per staff, calm, pleasant, cooperative. paranoid delusions. loose associations. isolative, withdrawn. Mental Status Exam Mental Status Exam Narrative: thin, spry. adequately dressed and groomed in street clothes. cooperative. no PMA/PMR. speech incr rate and amount. nml loudness, latency. thoughts digressive and tangential; paranoid delusions. affect hyper-intense, non-labile. no SI/HI/AVH expressed. Diagnostics Vital Signs (24Hr): Vital Signs - 24 hr 04/23/23 20:35 04/24/23 06:00 Temperature 98.3 F 99.4 F Pulse Rate 75 70 Respiratory Rate 16 18 Blood Pressure 135/79 114/76 Pulse Oximetry 99 97 Oxygen Delivery Method Room Air Room Air BMI result Body Mass Index 21.6 Labs 04/23/23 07:08 Labs: Laboratory Results - last 48 hr 04/22/23 04/22/23 04/23/23 17:45 17:45 07:08 Sodium 138 Potassium 4.1 Chloride 104 Carbon Dioxide 30 H Anion Gap 8 L BUN 14 Creatinine 0.79 Estim Creat Clear Calc 90.1 Estimated GFR > 60 Fasting Glucose 98 Calcium 9.5 D Total Bilirubin 0.2 AST 24 ALT 18 Alkaline Phosphatase 68 Total Protein 6.5 Albumin 3.2 L Triglycerides 147 Cholesterol 126 LDL Cholesterol, Calc 62 HDL Cholesterol 35 L TSH 2.28 Urine Color Yellow Urine Appearance Clear Urine pH 7.0 Ur Specific [place] 1.020 Urine Protein Negative Urine Glucose (UA) Negative Urine Ketones Negative Urine Blood Negative Urine Nitrite Negative Ur Leukocyte Esterase Negative Urine RBC 0-2 Urine WBC 0-5 Ur Squamous Epith Cells 0-2 Urine Bacteria None Seen Hyaline Casts 0-2 Urine Opiates Screen Not Detected Urine Fentanyl Screen Not Detected Ur Barbiturates Screen Not Detected Ur Phencyclidine Scrn Not Detected Ur Amphetamines Screen Not Detected U Benzodiazepines Scrn Not Detected Urine Cocaine Screen POSITIVE H U Marijuana (THC) Screen Not Detected Medications Medications Current Medications Acetaminophen (Acetaminophen 325 Mg Tablet) 650 mg PO Q6H PRN PRN Reason: Headache/Pain Mild Scale (1-3) Al Hydroxide/Mg Hydroxide (Magnesium Hydrox/Alum Hydrox 30 Ml Oral.Susp) 30 ml PO Q6H PRN PRN Reason: Heartburn/Nausea Buprenorphine/Naloxone (Buprenorphine/Naloxone 8/2 Mg Film) 1 film SUBLINGUAL TID@0900,1300,1800 [facility] Last Admin: 04/24/23 13:59 Dose: 1 film Docusate Sodium (Docusate Sodium 100 Mg Capsule) 100 mg PO BID [facility] Last Admin: 04/24/23 09:25 Dose: 100 mg Hydroxyzine HCl (Hydroxyzine Hcl 25 Mg Tablet) 25 mg PO Q6H PRN PRN Reason: Anxiety Lisinopril (Lisinopril 10 Mg Tablet) 10 mg PO DAILY [facility]; Protocol Last Admin: 04/24/23 09:25 Dose: 10 mg Magnesium Hydroxide (Milk Of Magnesia 30 Ml Oral.Susp) 30 ml PO DAILY PRN PRN Reason: Constipation Nicotine Polacrilex (Nicotine Polacrilex 2 Mg Gum) 2 mg BUCCAL Q2H PRN PRN Reason: Nicotine Cravings Risperidone (Risperidone 1 Mg Tablet) 1 mg PO BEDTIME [facility] Last Admin: 04/23/23 21:49 Dose: 1 mg Trazodone HCl (Trazodone Hcl 50 Mg Tablet) 50 mg PO BEDTIME MRX1 PRN PRN Reason: Insomnia Last Admin: 04/22/23 21:56 Dose: 50 mg Allergies Allergies Allergy/AdvReac Type Severity Reaction Status Date / Time No Known Allergies Allergy Verified 11/30/22 17:08 Assessment & Plan Assessment & Plan (1) Routine medical exam: Status: Acute Code(s): Z00.00 - Encounter for general adult medical examination without abnormal findings Assessment and Plan: 53-year-old male with history of hypertension, history of hepatitis-C treated, history of alcohol use disorder in sustained remission, opioid dependence on Suboxone, and recent crack cocaine use admitted to Psychiatry with consult placed to hospital service for medical H and P. #polysubstance abuse -plan per psychiatry -continue suboxone #HTN -bp reasonably controlled -continue lasix, spironolactone, and lisinopril # recent falls -?r/t substance use -Gait/balance normal without ataxia #Lower urinary tract symptoms -UA unremarkable -suspect r/t BPH -Pt did not report urinary symptoms to me, but did report to nursing -Consider adding tamsulosin 0.4 mg daily if continues reporting symptoms -otherwise outpatient follow-up (2) Crack cocaine use: Status: Acute Code(s): F14.90 - Cocaine use, unspecified, uncomplicated (3) Paranoia: Status: Acute Code(s): F22 - Delusional disorders Plan In conclusion, Jacque meets criteria for hospital level of care for safety and treatment.? Admission workup to be done.? He will meet with his treatment team on 04/24/23. He did not believe that any medication could change his belief on the reality of the situation etc. 04/23: discussed medication options and he was reluctantly accepting of a trial of Risperdal which we discussed including side effects.? 04/24: continues to reluctantly agree to medication. agreeable to remain for several days to rest and see if medication can be helpful to him. remains delusional today regarding threat of harm from others. Reason for continued inpatient stay Substantial Risk for: inability to function and rapid decompensation Time Spent With Patient Time: Total time managing care of this patient today __35__ minutes.
[2023-04-24 19:50] VITALS: BP 135/88; PULSE 81; RESP 18; TEMP 36.6; O2SAT 97
[2023-04-24] MEDS: risperiDONE 1 MG TABLET PO (21:33)
[2023-04-24] MEDS: traZODone HCL 50 MG TABLET PO (21:34)
--- NOTE | 2023-04-24 22:15 | PC.NURSE ---
Jacque left the unit with staff escort to have Head CT. Head CT results negative. Visible in the milieu, eating snacks. No behavior issues, med adherent.
[2023-04-25 08:35] VITALS: BP 95/52; PULSE 70; RESP 20; TEMP 37; O2SAT 97
[2023-04-25] MEDS: lisinopriL 10 MG TABLET PO (08:36)
[2023-04-25] MEDS: Buprenorphine/Naloxone 8/2 mg FILM 1 FILM SUBLINGUAL ×3 (08:36→18:18)
[2023-04-25] MEDS: Docusate Sodium 100 MG CAPSULE PO ×2 (08:36→21:38)
--- NOTE | 2023-04-25 14:24 | HO.PSYCHPN ---
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 remains with paranoid delusions, yet is quite pleasant throughout interview, appearing at times euphoric. does endorse DFA due to racing thoughts. agreeable to increase risperidone to 2 mg at [facility]. per staff, pleasant. no dep/anx. polite. deneis psych Sx. 01/27 anx/dep later. +RIS. restless sleep. Mental Status Exam Mental Status Exam Narrative: thin, spry. adequately dressed and groomed in street clothes. cooperative. no PMA/PMR. speech incr rate and amount. nml loudness, latency. thoughts digressive and tangential; paranoid delusions. affect hyper-intense, non-labile, somewhat euphoric. no SI/HI/AVH expressed. Diagnostics Vital Signs (24Hr): Vital Signs - 24 hr 04/24/23 19:50 04/25/23 08:35 Temperature 97.8 F 98.6 F Pulse Rate 81 70 Respiratory Rate 18 20 Blood Pressure 135/88 95/52 L Pulse Oximetry 97 97 Oxygen Delivery Method Room Air Room Air BMI result Body Mass Index 21.6 Labs 04/23/23 07:08 Imaging Radiology Impressions: ITS Impressions Head CT 04/24/23 20:53 IMPRESSION: No acute intracranial pathology. Medications Medications Current Medications Acetaminophen (Acetaminophen 325 Mg Tablet) 650 mg PO Q6H PRN PRN Reason: Headache/Pain Mild Scale (1-3) Al Hydroxide/Mg Hydroxide (Magnesium Hydrox/Alum Hydrox 30 Ml Oral.Susp) 30 ml PO Q6H PRN PRN Reason: Heartburn/Nausea Buprenorphine/Naloxone (Buprenorphine/Naloxone 8/2 Mg Film) 1 film SUBLINGUAL TID@0900,1300,1800 [facility] Last Admin: 04/25/23 13:23 Dose: 1 film Docusate Sodium (Docusate Sodium 100 Mg Capsule) 100 mg PO BID [facility] Last Admin: 04/25/23 08:36 Dose: 100 mg Hydroxyzine HCl (Hydroxyzine Hcl 25 Mg Tablet) 25 mg PO Q6H PRN PRN Reason: Anxiety Lisinopril (Lisinopril 10 Mg Tablet) 10 mg PO DAILY [facility]; Protocol Last Admin: 04/25/23 08:36 Dose: 10 mg Magnesium Hydroxide (Milk Of Magnesia 30 Ml Oral.Susp) 30 ml PO DAILY PRN PRN Reason: Constipation Nicotine Polacrilex (Nicotine Polacrilex 2 Mg Gum) 2 mg BUCCAL Q2H PRN PRN Reason: Nicotine Cravings Risperidone (Risperidone 2 Mg Tablet) 2 mg PO BEDTIME [facility] Trazodone HCl (Trazodone Hcl 50 Mg Tablet) 50 mg PO BEDTIME MRX1 PRN PRN Reason: Insomnia Last Admin: 04/24/23 21:34 Dose: 50 mg Allergies Allergies Allergy/AdvReac Type Severity Reaction Status Date / Time No Known Allergies Allergy Verified 11/30/22 17:08 Assessment & Plan Assessment & Plan (1) Routine medical exam: Status: Acute Code(s): Z00.00 - Encounter for general adult medical examination without abnormal findings Assessment and Plan: 53-year-old male with history of hypertension, history of hepatitis-C treated, history of alcohol use disorder in sustained remission, opioid dependence on Suboxone, and recent crack cocaine use admitted to Psychiatry with consult placed to hospital service for medical H and P. #polysubstance abuse -plan per psychiatry -continue suboxone #HTN -bp reasonably controlled -continue lasix, spironolactone, and lisinopril # recent falls -?r/t substance use -Gait/balance normal without ataxia #Lower urinary tract symptoms -UA unremarkable -suspect r/t BPH -Pt did not report urinary symptoms to me, but did report to nursing -Consider adding tamsulosin 0.4 mg daily if continues reporting symptoms -otherwise outpatient follow-up (2) Crack cocaine use: Status: Acute Code(s): F14.90 - Cocaine use, unspecified, uncomplicated (3) Paranoia: Status: Acute Code(s): F22 - Delusional disorders Plan In conclusion, Jacque meets criteria for hospital level of care for safety and treatment.? Admission workup to be done.? He will meet with his treatment team on 04/24/23. He did not believe that any medication could change his belief on the reality of the situation etc. 04/23: discussed medication options and he was reluctantly accepting of a trial of Risperdal which we discussed including side effects.? 04/24: continues to reluctantly agree to medication. agreeable to remain for several days to rest and see if medication can be helpful to him. remains delusional today regarding threat of harm from others. 04/25: as for yesterday. somewhat euphoric, consider bulmaro. some DFA, agreeable to increase risperidone to 2 mg at HS. Reason for continued inpatient stay Substantial Risk for: inability to function and rapid decompensation Time Spent With Patient Time: Total time managing care of this patient today __35__ minutes.
[2023-04-25 19:45] VITALS: BP 133/76; PULSE 94; RESP 18; TEMP 36.6; O2SAT 97
[2023-04-25] MEDS: Acetaminophen 325 MG TABLET 650 MG PO (21:38)
[2023-04-25] MEDS: traZODone HCL 50 MG TABLET PO (21:38)
[2023-04-25] MEDS: risperiDONE 2 MG TABLET PO (21:39)
[2023-04-26 06:00] VITALS: BP 122/80; PULSE 78; RESP 18; TEMP 36.6; O2SAT 98
[2023-04-26 07:00] VITALS: BMI 22.9
[2023-04-26] MEDS: Acetaminophen 325 MG TABLET 650 MG PO ×2 (09:35→15:59)
[2023-04-26] MEDS: lisinopriL 10 MG TABLET PO (09:35)
[2023-04-26] MEDS: Docusate Sodium 100 MG CAPSULE PO ×2 (09:35→22:17)
[2023-04-26] MEDS: Buprenorphine/Naloxone 8/2 mg FILM 1 FILM SUBLINGUAL ×3 (09:36→17:59)
--- NOTE | 2023-04-26 15:15 | HO.PSYCHPN ---
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 remains delusional, but delusions are not raised by him or dwelt upon. states he is sleeping well. per staff, pleasant. slept well. med-compliant. Mental Status Exam Mental Status Exam Narrative: thin, spry. adequately dressed and groomed in street clothes. cooperative. no PMA/PMR. speech incr rate and amount. nml loudness, latency. thoughts digressive; paranoid delusions. affect hyper-intense, non-labile, but less euphoric. no SI/HI/AVH expressed. Diagnostics Vital Signs (24Hr): Vital Signs - 24 hr 04/25/23 19:45 04/26/23 06:00 Temperature 97.8 F 97.8 F Pulse Rate 94 78 Respiratory Rate 18 18 Blood Pressure 133/76 122/80 Pulse Oximetry 97 98 Oxygen Delivery Method Room Air Room Air BMI result Body Mass Index 21.6 Labs 04/23/23 07:08 Imaging Radiology Impressions: ITS Impressions Head CT 04/24/23 20:53 IMPRESSION: No acute intracranial pathology. Medications Medications Current Medications Acetaminophen (Acetaminophen 325 Mg Tablet) 650 mg PO Q6H PRN PRN Reason: Headache/Pain Mild Scale (1-3) Last Admin: 04/26/23 09:35 Dose: 650 mg Al Hydroxide/Mg Hydroxide (Magnesium Hydrox/Alum Hydrox 30 Ml Oral.Susp) 30 ml PO Q6H PRN PRN Reason: Heartburn/Nausea Buprenorphine/Naloxone (Buprenorphine/Naloxone 8/2 Mg Film) 1 film SUBLINGUAL TID@0900,1300,1800 [facility] Last Admin: 04/26/23 13:02 Dose: 1 film Docusate Sodium (Docusate Sodium 100 Mg Capsule) 100 mg PO BID [facility] Last Admin: 04/26/23 09:35 Dose: 100 mg Hydroxyzine HCl (Hydroxyzine Hcl 25 Mg Tablet) 25 mg PO Q6H PRN PRN Reason: Anxiety Lisinopril (Lisinopril 10 Mg Tablet) 10 mg PO DAILY [facility]; Protocol Last Admin: 04/26/23 09:35 Dose: 10 mg Magnesium Hydroxide (Milk Of Magnesia 30 Ml Oral.Susp) 30 ml PO DAILY PRN PRN Reason: Constipation Nicotine Polacrilex (Nicotine Polacrilex 2 Mg Gum) 2 mg BUCCAL Q2H PRN PRN Reason: Nicotine Cravings Risperidone (Risperidone 2 Mg Tablet) 2 mg PO BEDTIME [facility] Last Admin: 04/25/23 21:39 Dose: 2 mg Trazodone HCl (Trazodone Hcl 50 Mg Tablet) 50 mg PO BEDTIME MRX1 PRN PRN Reason: Insomnia Last Admin: 04/25/23 21:38 Dose: 50 mg Allergies Allergies Allergy/AdvReac Type Severity Reaction Status Date / Time No Known Allergies Allergy Verified 11/30/22 17:08 Assessment & Plan Assessment & Plan (1) Routine medical exam: Status: Acute Code(s): Z00.00 - Encounter for general adult medical examination without abnormal findings Assessment and Plan: 53-year-old male with history of hypertension, history of hepatitis-C treated, history of alcohol use disorder in sustained remission, opioid dependence on Suboxone, and recent crack cocaine use admitted to Psychiatry with consult placed to hospital service for medical H and P. #polysubstance abuse -plan per psychiatry -continue suboxone #HTN -bp reasonably controlled -continue lasix, spironolactone, and lisinopril # recent falls -?r/t substance use -Gait/balance normal without ataxia #Lower urinary tract symptoms -UA unremarkable -suspect r/t BPH -Pt did not report urinary symptoms to me, but did report to nursing -Consider adding tamsulosin 0.4 mg daily if continues reporting symptoms -otherwise outpatient follow-up (2) Crack cocaine use: Status: Acute Code(s): F14.90 - Cocaine use, unspecified, uncomplicated (3) Paranoia: Status: Acute Code(s): F22 - Delusional disorders Plan In conclusion, Jacque meets criteria for hospital level of care for safety and treatment.? Admission workup to be done.? He will meet with his treatment team on 04/24/23. He did not believe that any medication could change his belief on the reality of the situation etc. 04/23: discussed medication options and he was reluctantly accepting of a trial of Risperdal which we discussed including side effects.? 04/24: continues to reluctantly agree to medication. agreeable to remain for several days to rest and see if medication can be helpful to him. remains delusional today regarding threat of harm from others. 04/25: as for yesterday. somewhat euphoric, consider bulmaro. some DFA, agreeable to increase risperidone to 2 mg at HS. 04/26: less euphoric than yesterday, but still with elevated affect. slept well last night. paranoid system appears less powerful than yesterday, did not spontaneously broach it but had to be asked. continue current mgmt. Reason for continued inpatient stay Substantial Risk for: inability to function and rapid decompensation Time Spent With Patient Time: Total time managing care of this patient today __35__ minutes.
[2023-04-26 19:55] VITALS: BP 133/79; PULSE 79; RESP 18; TEMP 36.6; O2SAT 99
[2023-04-26] MEDS: risperiDONE 2 MG TABLET PO (22:17)
[2023-04-27 08:30] VITALS: BP 126/74; PULSE 81; RESP 18; TEMP 37.2; O2SAT 99
[2023-04-27] MEDS: Docusate Sodium 100 MG CAPSULE PO ×2 (09:00→19:28)
[2023-04-27] MEDS: lisinopriL 10 MG TABLET PO (09:00)
[2023-04-27] MEDS: Buprenorphine/Naloxone 8/2 mg FILM 1 FILM SUBLINGUAL ×3 (09:01→18:18)
[2023-04-27] MEDS: Acetaminophen 325 MG TABLET 650 MG PO (09:59)
--- NOTE | 2023-04-27 14:44 | P.PNPSI_ITS ---
Subjective Subjective Date of Service: 04/27/23 Reason For Visit: Unspecified anxiety disorder Interim History: seen in his room, has to be woken up. 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 very terse and constricted today, dramatic departure from affect up until now. on being asked why he doesn't want to go outside for fresh air break, he prevaricates, saying he has fresh air in here. he is then encouraged to be out and about on the unit, participating in groups, and he responds by saying he doesn't trust the other patients, in general, so he doesn't go out. on being asked his mood, he says it is down. why? he wants to live in reality, not some fantasy land. per staff, not attending groups. extremely paranoid. won't go outside for fresh air for fear of people being out there ready to take pictures of him. staying in his room due to his belief that one of the patients is a fake and is there to monitor him. Mental Status Exam Mental Status Exam Narrative: thin. adequately dressed and groomed in street clothes. cooperative. no PMA/PMR. speech decr rate and amount. nml loudness, incr latency. thoughts linear, but responses evasive and vague. affect hypo-intense, non-labile. no SI/HI/AVH expressed. Diagnostics Vital Signs (24Hr): Vital Signs - 24 hr 04/26/23 19:55 04/27/23 08:30 Temperature 97.9 F 99.0 F Pulse Rate 79 81 Respiratory Rate 18 18 Blood Pressure 133/79 126/74 Pulse Oximetry 99 99 Oxygen Delivery Method Room Air Room Air BMI result Body Mass Index 21.6 Labs 04/23/23 07:08 Imaging Radiology Impressions: ITS Impressions Head CT 04/24/23 20:53 IMPRESSION: No acute intracranial pathology. Medications Medications Current Medications Acetaminophen (Acetaminophen 325 Mg Tablet) 650 mg PO Q6H PRN PRN Reason: Headache/Pain Mild Scale (1-3) Last Admin: 04/27/23 09:59 Dose: 650 mg Al Hydroxide/Mg Hydroxide (Magnesium Hydrox/Alum Hydrox 30 Ml Oral.Susp) 30 ml PO Q6H PRN PRN Reason: Heartburn/Nausea Buprenorphine/Naloxone (Buprenorphine/Naloxone 8/2 Mg Film) 1 film SUBLINGUAL TID@0900,1300,1800 [facility] Last Admin: 04/27/23 13:40 Dose: 1 film Docusate Sodium (Docusate Sodium 100 Mg Capsule) 100 mg PO BID [facility] Last Admin: 04/27/23 09:00 Dose: 100 mg Hydroxyzine HCl (Hydroxyzine Hcl 25 Mg Tablet) 25 mg PO Q6H PRN PRN Reason: Anxiety Lisinopril (Lisinopril 10 Mg Tablet) 10 mg PO DAILY [facility]; Protocol Last Admin: 04/27/23 09:00 Dose: 10 mg Magnesium Hydroxide (Milk Of Magnesia 30 Ml Oral.Susp) 30 ml PO DAILY PRN PRN Reason: Constipation Nicotine Polacrilex (Nicotine Polacrilex 2 Mg Gum) 2 mg BUCCAL Q2H PRN PRN Reason: Nicotine Cravings Risperidone (Risperidone 2 Mg Tablet) 2 mg PO BEDTIME [facility] Last Admin: 04/26/23 22:17 Dose: 2 mg Trazodone HCl (Trazodone Hcl 50 Mg Tablet) 50 mg PO BEDTIME MRX1 PRN PRN Reason: Insomnia Last Admin: 04/25/23 21:38 Dose: 50 mg Allergies Allergies Allergy/AdvReac Type Severity Reaction Status Date / Time No Known Allergies Allergy Verified 11/30/22 17:08 Assessment & Plan Assessment & Plan (1) Routine medical exam: Status: Acute Code(s): Z00.00 - Encounter for general adult medical examination without abnormal findings Assessment and Plan: 53-year-old male with history of hypertension, history of hepatitis-C treated, history of alcohol use disorder in sustained remission, opioid dependence on Suboxone, and recent crack cocaine use admitted to Psychiatry with consult placed to hospital service for medical H and P. #polysubstance abuse -plan per psychiatry -continue suboxone #HTN -bp reasonably controlled -continue lasix, spironolactone, and lisinopril # recent falls -?r/t substance use -Gait/balance normal without ataxia #Lower urinary tract symptoms -UA unremarkable -suspect r/t BPH -Pt did not report urinary symptoms to me, but did report to nursing -Consider adding tamsulosin 0.4 mg daily if continues reporting symptoms -otherwise outpatient follow-up (2) Crack cocaine use: Status: Acute Code(s): F14.90 - Cocaine use, unspecified, uncomplicated (3) Paranoia: Status: Acute Code(s): F22 - Delusional disorders Plan In conclusion, Jacque meets criteria for hospital level of care for safety and treatment.? Admission workup to be done.? He will meet with his treatment team on 04/24/23. He did not believe that any medication could change his belief on the reality of the situation etc. 04/23: discussed medication options and he was reluctantly accepting of a trial of Risperdal which we discussed including side effects.? 04/24: continues to reluctantly agree to medication. agreeable to remain for several days to rest and see if medication can be helpful to him. remains delusional today regarding threat of harm from others. 04/25: as for yesterday. somewhat euphoric, consider bulmaro. some DFA, agreeable to increase risperidone to 2 mg at HS. 04/26: less euphoric than yesterday, but still with elevated affect. slept well last night. paranoid system appears less powerful than yesterday, did not spontaneously broach it but had to be asked. continue current mgmt. 04/27: appears dysphoric today, in bed asleep late morning. remains delusional, but less willing to express his delusions. continue current mgmt. Reason for continued inpatient stay Substantial Risk for: inability to function and rapid decompensation Time Spent With Patient Time: Total time managing care of this patient today __35__ minutes.
[2023-04-27] MEDS: risperiDONE 2 MG TABLET PO (19:28)
[2023-04-27 19:29] VITALS: BP 128/80; PULSE 94; RESP 18; TEMP 36.7; O2SAT 97
[2023-04-28] MEDS: lisinopriL 10 MG TABLET PO (09:42)
[2023-04-28] MEDS: Buprenorphine/Naloxone 8/2 mg FILM 1 FILM SUBLINGUAL ×3 (09:42→17:55)
[2023-04-28] MEDS: Docusate Sodium 100 MG CAPSULE PO ×2 (09:42→20:28)
[2023-04-28 09:55] VITALS: BP 123/81; PULSE 95; RESP 18; TEMP 37.1; O2SAT 97
--- NOTE | 2023-04-28 16:20 | HO.PSYCHPN ---
Subjective Subjective Date of Service: 04/28/23 Reason For Visit: Unspecified anxiety disorder Subjective Notes: Conditional Voluntary Medical Problems Affecting Mental Status: No Interim History: met with patient. Discussed with Nursing. Overall isolative. Some paranoia. With gag writer in room. Reported feeling okay, safe, sleeping well. No medication concerns. Denied depression, SI. Did appear guarded, denied feeling paranoid. Medication Compliance: Yes Side effects from medications: No Attending Groups: No Review of Systems Acute medical concerns: No Review of Systems Review of Systems Yes all other systems are reviewed and are negative Mental Status Exam Mental Status Exam Narrative: Pleasant. In room. Minimal engagement. Denied depression, SI, HI. Guarded. Insight and judgment okay Diagnostics Vital Signs (24Hr): Vital Signs - 24 hr 04/27/23 19:29 04/28/23 09:55 Temperature 98.1 F 98.8 F Pulse Rate 94 95 Respiratory Rate 18 18 Blood Pressure 128/80 123/81 Pulse Oximetry 97 97 Oxygen Delivery Method Room Air Room Air BMI result Body Mass Index 22.9 Labs 04/23/23 07:08 Imaging Radiology Impressions: ITS Impressions Head CT 04/24/23 20:53 IMPRESSION: No acute intracranial pathology. Medications Medications Current Medications Acetaminophen (Acetaminophen 325 Mg Tablet) 650 mg PO Q6H PRN PRN Reason: Headache/Pain Mild Scale (1-3) Last Admin: 04/27/23 09:59 Dose: 650 mg Al Hydroxide/Mg Hydroxide (Magnesium Hydrox/Alum Hydrox 30 Ml Oral.Susp) 30 ml PO Q6H PRN PRN Reason: Heartburn/Nausea Buprenorphine/Naloxone (Buprenorphine/Naloxone 8/2 Mg Film) 1 film SUBLINGUAL TID@0900,1300,1800 [facility] Last Admin: 04/28/23 13:31 Dose: 1 film Docusate Sodium (Docusate Sodium 100 Mg Capsule) 100 mg PO BID [facility] Last Admin: 04/28/23 09:42 Dose: 100 mg Hydroxyzine HCl (Hydroxyzine Hcl 25 Mg Tablet) 25 mg PO Q6H PRN PRN Reason: Anxiety Lisinopril (Lisinopril 10 Mg Tablet) 10 mg PO DAILY [facility]; Protocol Last Admin: 04/28/23 09:42 Dose: 10 mg Magnesium Hydroxide (Milk Of Magnesia 30 Ml Oral.Susp) 30 ml PO DAILY PRN PRN Reason: Constipation Nicotine Polacrilex (Nicotine Polacrilex 2 Mg Gum) 2 mg BUCCAL Q2H PRN PRN Reason: Nicotine Cravings Risperidone (Risperidone 2 Mg Tablet) 2 mg PO BEDTIME [facility] Last Admin: 04/27/23 19:28 Dose: 2 mg Trazodone HCl (Trazodone Hcl 50 Mg Tablet) 50 mg PO BEDTIME MRX1 PRN PRN Reason: Insomnia Last Admin: 04/25/23 21:38 Dose: 50 mg Allergies Allergies Allergy/AdvReac Type Severity Reaction Status Date / Time No Known Allergies Allergy Verified 11/30/22 17:08 Assessment & Plan Assessment & Plan (1) Routine medical exam: Status: Acute Code(s): Z00.00 - Encounter for general adult medical examination without abnormal findings Assessment and Plan: 53-year-old male with history of hypertension, history of hepatitis-C treated, history of alcohol use disorder in sustained remission, opioid dependence on Suboxone, and recent crack cocaine use admitted to Psychiatry with consult placed to hospital service for medical H and P. #polysubstance abuse -plan per psychiatry -continue suboxone #HTN -bp reasonably controlled -continue lasix, spironolactone, and lisinopril # recent falls -?r/t substance use -Gait/balance normal without ataxia #Lower urinary tract symptoms -UA unremarkable -suspect r/t BPH -Pt did not report urinary symptoms to me, but did report to nursing -Consider adding tamsulosin 0.4 mg daily if continues reporting symptoms -otherwise outpatient follow-up (2) Crack cocaine use: Status: Acute Code(s): F14.90 - Cocaine use, unspecified, uncomplicated (3) Paranoia: Status: Acute Code(s): F22 - Delusional disorders Plan In conclusion, Jacque meets criteria for hospital level of care for safety and treatment.? Admission workup to be done.? He will meet with his treatment team on 04/24/23. He did not believe that any medication could change his belief on the reality of the situation etc. 04/23: discussed medication options and he was reluctantly accepting of a trial of Risperdal which we discussed including side effects.? 04/24: continues to reluctantly agree to medication. agreeable to remain for several days to rest and see if medication can be helpful to him. remains delusional today regarding threat of harm from others. 04/25: as for yesterday. somewhat euphoric, consider bulmaro. some DFA, agreeable to increase risperidone to 2 mg at HS. 04/26: less euphoric than yesterday, but still with elevated affect. slept well last night. paranoid system appears less powerful than yesterday, did not spontaneously broach it but had to be asked. continue current mgmt. 04/27: appears dysphoric today, in bed asleep late morning. remains delusional, but less willing to express his delusions. continue current mgmt. 04/28/2023: No changes to current plan Reason for continued inpatient stay Substantial Risk for: inability to function Time Spent With Patient Time: Total time managing care of this patient today ____ minutes.
[2023-04-28] MEDS: hydrOXYzine HCL 25 MG TABLET PO (18:21)
[2023-04-28 20:20] VITALS: BP 107/59; PULSE 88; RESP 16; TEMP 36.9; O2SAT 95
[2023-04-28] MEDS: risperiDONE 2 MG TABLET PO (20:28)
[2023-04-29] MEDS: lisinopriL 10 MG TABLET PO (09:06)
[2023-04-29] MEDS: Docusate Sodium 100 MG CAPSULE PO ×2 (09:06→21:02)
[2023-04-29] MEDS: Buprenorphine/Naloxone 8/2 mg FILM 1 FILM SUBLINGUAL ×3 (09:06→18:01)
[2023-04-29 09:38] VITALS: BP 133/92; PULSE 77; RESP 18; TEMP 36.5; O2SAT 96
[2023-04-29] MEDS: hydrOXYzine HCL 25 MG TABLET PO (14:26)
--- NOTE | 2023-04-29 16:21 | HO.PSYCHPN ---
Subjective Subjective Date of Service: 04/29/23 Reason For Visit: Unspecified anxiety disorder Interim History: met with patient. Discussed with Nursing. More paranoid today. 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 Reported feeling okay, safe. Sleep was broken last night. No medication concerns. Medication Compliance: Yes Side effects from medications: No Attending Groups: No Review of Systems Acute medical concerns: No Review of Systems Review of Systems Yes all other systems are reviewed and are negative Mental Status Exam Mental Status Exam Narrative: Pleasant. In room. Denied depression, SI, HI. Gradniose and paranoid. Insight and judgment okay Diagnostics Vital Signs (24Hr): Vital Signs - 24 hr 04/28/23 20:20 04/29/23 09:38 Temperature 98.4 F 97.7 F Pulse Rate 88 77 Respiratory Rate 16 18 Blood Pressure 107/59 L 133/92 H Pulse Oximetry 95 96 Oxygen Delivery Method Room Air Room Air BMI result Body Mass Index 22.9 Labs 04/23/23 07:08 Imaging Radiology Impressions: ITS Impressions Head CT 04/24/23 20:53 IMPRESSION: No acute intracranial pathology. Medications Medications Current Medications Acetaminophen (Acetaminophen 325 Mg Tablet) 650 mg PO Q6H PRN PRN Reason: Headache/Pain Mild Scale (1-3) Last Admin: 04/27/23 09:59 Dose: 650 mg Al Hydroxide/Mg Hydroxide (Magnesium Hydrox/Alum Hydrox 30 Ml Oral.Susp) 30 ml PO Q6H PRN PRN Reason: Heartburn/Nausea Buprenorphine/Naloxone (Buprenorphine/Naloxone 8/2 Mg Film) 1 film SUBLINGUAL TID@0900,1300,1800 [facility] Last Admin: 04/29/23 13:21 Dose: 1 film Docusate Sodium (Docusate Sodium 100 Mg Capsule) 100 mg PO BID [facility] Last Admin: 04/29/23 09:06 Dose: 100 mg Hydroxyzine HCl (Hydroxyzine Hcl 25 Mg Tablet) 25 mg PO Q6H PRN PRN Reason: Anxiety Last Admin: 04/29/23 14:26 Dose: 25 mg Lisinopril (Lisinopril 10 Mg Tablet) 10 mg PO DAILY [facility]; Protocol Last Admin: 04/29/23 09:06 Dose: 10 mg Magnesium Hydroxide (Milk Of Magnesia 30 Ml Oral.Susp) 30 ml PO DAILY PRN PRN Reason: Constipation Nicotine Polacrilex (Nicotine Polacrilex 2 Mg Gum) 2 mg BUCCAL Q2H PRN PRN Reason: Nicotine Cravings Risperidone (Risperidone 2 Mg Tablet) 2 mg PO BEDTIME [facility] Last Admin: 04/28/23 20:28 Dose: 2 mg Trazodone HCl (Trazodone Hcl 50 Mg Tablet) 50 mg PO BEDTIME MRX1 PRN PRN Reason: Insomnia Last Admin: 04/25/23 21:38 Dose: 50 mg Allergies Allergies Allergy/AdvReac Type Severity Reaction Status Date / Time No Known Allergies Allergy Verified 11/30/22 17:08 Assessment & Plan Assessment & Plan (1) Routine medical exam: Status: Acute Code(s): Z00.00 - Encounter for general adult medical examination without abnormal findings Assessment and Plan: 53-year-old male with history of hypertension, history of hepatitis-C treated, history of alcohol use disorder in sustained remission, opioid dependence on Suboxone, and recent crack cocaine use admitted to Psychiatry with consult placed to hospital service for medical H and P. #polysubstance abuse -plan per psychiatry -continue suboxone #HTN -bp reasonably controlled -continue lasix, spironolactone, and lisinopril # recent falls -?r/t substance use -Gait/balance normal without ataxia #Lower urinary tract symptoms -UA unremarkable -suspect r/t BPH -Pt did not report urinary symptoms to me, but did report to nursing -Consider adding tamsulosin 0.4 mg daily if continues reporting symptoms -otherwise outpatient follow-up (2) Crack cocaine use: Status: Acute Code(s): F14.90 - Cocaine use, unspecified, uncomplicated (3) Paranoia: Status: Acute Code(s): F22 - Delusional disorders Plan In conclusion, Jacque meets criteria for hospital level of care for safety and treatment.? Admission workup to be done.? He will meet with his treatment team on 04/24/23. He did not believe that any medication could change his belief on the reality of the situation etc. 04/23: discussed medication options and he was reluctantly accepting of a trial of Risperdal which we discussed including side effects.? 04/24: continues to reluctantly agree to medication. agreeable to remain for several days to rest and see if medication can be helpful to him. remains delusional today regarding threat of harm from others. 04/25: as for yesterday. somewhat euphoric, consider bulmaro. some DFA, agreeable to increase risperidone to 2 mg at HS. 04/26: less euphoric than yesterday, but still with elevated affect. slept well last night. paranoid system appears less powerful than yesterday, did not spontaneously broach it but had to be asked. continue current mgmt. 04/27: appears dysphoric today, in bed asleep late morning. remains delusional, but less willing to express his delusions. continue current mgmt. 04/28/2023: No changes to current plan 04/29: increase risperdal tp 3mg bedtime as appears elated and paranoid Reason for continued inpatient stay Substantial Risk for: rapid decompensation Time Spent With Patient Time: Total time managing care of this patient today ____ minutes.
[2023-04-29 19:45] VITALS: BP 100/56; PULSE 87; RESP 18; TEMP 37; O2SAT 97
[2023-04-29] MEDS: traZODone HCL 50 MG TABLET PO (21:02)
[2023-04-29] MEDS: risperiDONE 3 MG TABLET PO (21:02)
[2023-04-30] MEDS: lisinopriL 10 MG TABLET PO (09:07)
[2023-04-30] MEDS: Buprenorphine/Naloxone 8/2 mg FILM 1 FILM SUBLINGUAL ×3 (09:07→18:30)
[2023-04-30] MEDS: Docusate Sodium 100 MG CAPSULE PO ×2 (09:07→21:52)
[2023-04-30 09:49] VITALS: BP 124/85; PULSE 93; RESP 18; TEMP 36.5; O2SAT 98
--- NOTE | 2023-04-30 14:47 | HO.PSYCHPN ---
Subjective Subjective Date of Service: 04/30/23 Reason For Visit: Unspecified anxiety disorder Interim History: seen with obstetrics teacher and [employer] richardson. hyperverbal, expressive. some paranoid ideation but less overtly delusional thatn prior. c/o feeling groggy this morning. agrees to DC trazodone and continue with risperidone 3 mg at HS to see how things go tonight. per collateral from [facility], pt has a brother jatin in [place] who will take him upon discharge. per staff, anx 7. in bed all shift. c/o nightmares. believes ppl have been singing loudly on the unit to annoy him. believes ppl to whom he owes money are looking for him. sleeping OK. mostly in his room. Mental Status Exam Mental Status Exam Narrative: thin. adequately dressed and groomed in street clothes. cooperative. no PMA/PMR. speech incr rate and amount. nml loudness, decr latency. thoughts linear, logical. affect hyper-intense, non-labile. no SI/HI/AVH expressed. Diagnostics Vital Signs (24Hr): Vital Signs - 24 hr 04/29/23 19:45 04/30/23 09:49 Temperature 98.6 F 97.7 F Pulse Rate 87 93 Respiratory Rate 18 18 Blood Pressure 100/56 L 124/85 Pulse Oximetry 97 98 Oxygen Delivery Method Room Air Room Air BMI result Body Mass Index 22.9 Labs 04/23/23 07:08 Imaging Radiology Impressions: ITS Impressions Head CT 04/24/23 20:53 IMPRESSION: No acute intracranial pathology. Medications Medications Current Medications Acetaminophen (Acetaminophen 325 Mg Tablet) 650 mg PO Q6H PRN PRN Reason: Headache/Pain Mild Scale (1-3) Last Admin: 04/27/23 09:59 Dose: 650 mg Al Hydroxide/Mg Hydroxide (Magnesium Hydrox/Alum Hydrox 30 Ml Oral.Susp) 30 ml PO Q6H PRN PRN Reason: Heartburn/Nausea Buprenorphine/Naloxone (Buprenorphine/Naloxone 8/2 Mg Film) 1 film SUBLINGUAL TID@0900,1300,1800 [facility] Last Admin: 04/30/23 14:09 Dose: 1 film Docusate Sodium (Docusate Sodium 100 Mg Capsule) 100 mg PO BID [facility] Last Admin: 04/30/23 09:07 Dose: 100 mg Hydroxyzine HCl (Hydroxyzine Hcl 25 Mg Tablet) 25 mg PO Q6H PRN PRN Reason: Anxiety Last Admin: 04/29/23 14:26 Dose: 25 mg Lisinopril (Lisinopril 10 Mg Tablet) 10 mg PO DAILY [facility]; Protocol Last Admin: 04/30/23 09:07 Dose: 10 mg Magnesium Hydroxide (Milk Of Magnesia 30 Ml Oral.Susp) 30 ml PO DAILY PRN PRN Reason: Constipation Nicotine Polacrilex (Nicotine Polacrilex 2 Mg Gum) 2 mg BUCCAL Q2H PRN PRN Reason: Nicotine Cravings Risperidone (Risperidone 3 Mg Tablet) 3 mg PO BEDTIME [facility] Last Admin: 04/29/23 21:02 Dose: 3 mg Allergies Allergies Allergy/AdvReac Type Severity Reaction Status Date / Time No Known Allergies Allergy Verified 11/30/22 17:08 Assessment & Plan Assessment & Plan (1) Routine medical exam: Status: Acute Code(s): Z00.00 - Encounter for general adult medical examination without abnormal findings Assessment and Plan: 53-year-old male with history of hypertension, history of hepatitis-C treated, history of alcohol use disorder in sustained remission, opioid dependence on Suboxone, and recent crack cocaine use admitted to Psychiatry with consult placed to hospital service for medical H and P. #polysubstance abuse -plan per psychiatry -continue suboxone #HTN -bp reasonably controlled -continue lasix, spironolactone, and lisinopril # recent falls -?r/t substance use -Gait/balance normal without ataxia #Lower urinary tract symptoms -UA unremarkable -suspect r/t BPH -Pt did not report urinary symptoms to me, but did report to nursing -Consider adding tamsulosin 0.4 mg daily if continues reporting symptoms -otherwise outpatient follow-up (2) Crack cocaine use: Status: Acute Code(s): F14.90 - Cocaine use, unspecified, uncomplicated (3) Paranoia: Status: Acute Code(s): F22 - Delusional disorders Plan In conclusion, Jacque meets criteria for hospital level of care for safety and treatment.? Admission workup to be done.? He will meet with his treatment team on 04/24/23. He did not believe that any medication could change his belief on the reality of the situation etc. 04/23: discussed medication options and he was reluctantly accepting of a trial of Risperdal which we discussed including side effects.? 04/24: continues to reluctantly agree to medication. agreeable to remain for several days to rest and see if medication can be helpful to him. remains delusional today regarding threat of harm from others. 04/25: as for yesterday. somewhat euphoric, consider bulmaro. some DFA, agreeable to increase risperidone to 2 mg at HS. 04/26: less euphoric than yesterday, but still with elevated affect. slept well last night. paranoid system appears less powerful than yesterday, did not spontaneously broach it but had to be asked. continue current mgmt. 04/27: appears dysphoric today, in bed asleep late morning. remains delusional, but less willing to express his delusions. continue current mgmt. 04/28/2023: No changes to current plan 04/29: increase risperdal tp 3mg bedtime as appears elated and paranoid 04/30: DC PRN trazodone at HS as it was given to him last night and he feels sedated/groggy/hung over this morning. continues paranoid but with less and less bizarre delusions. pt will DC to his brother's home in [place] when ready for discharge. Reason for continued inpatient stay Substantial Risk for: inability to function and rapid decompensation Time Spent With Patient Time: Total time managing care of this patient today __35__ minutes.
[2023-04-30 21:45] VITALS: BP 145/89; PULSE 99; RESP 16; TEMP 36.9; O2SAT 94
[2023-04-30] MEDS: risperiDONE 3 MG TABLET PO (21:52)
[2023-05-01 09:30] VITALS: BP 142/75; PULSE 102; RESP 16; TEMP 36.6; O2SAT 97
[2023-05-01] MEDS: Acetaminophen 325 MG TABLET 650 MG PO (09:58)
[2023-05-01] MEDS: Docusate Sodium 100 MG CAPSULE PO ×2 (09:59→22:24)
[2023-05-01] MEDS: lisinopriL 10 MG TABLET PO (09:59)
[2023-05-01] MEDS: Buprenorphine/Naloxone 8/2 mg FILM 1 FILM SUBLINGUAL ×3 (09:59→19:07)
--- NOTE | 2023-05-01 15:16 | HO.PSYCHPN ---
Subjective Subjective Date of Service: 05/01/23 Reason For Visit: Unspecified anxiety disorder Interim History: chatty, full affect, seemingly tangential. seen with SW theobold and batch roller operator. c/o feeling groggy and hung over again. agreeable to decrease risperidone to 2 mg and reinstate trazodone PRN. also c/o sore throat, cepacol lozenges prescribed. per staff, feeling good. paranoia. not attending groups. eating and sleeping. appreciative of care. Mental Status Exam Mental Status Exam Narrative: thin. adequately dressed and groomed in street clothes. cooperative. no PMA/PMR. speech incr rate and amount. nml loudness, decr latency. thoughts linear, logical. affect hyper-intense, min-labile. no SI/HI/AVH expressed. Diagnostics Vital Signs (24Hr): Vital Signs - 24 hr 04/30/23 21:45 05/01/23 09:30 Temperature 98.4 F 97.8 F Pulse Rate 99 102 H Respiratory Rate 16 16 Blood Pressure 145/89 H 142/75 H Pulse Oximetry 94 97 Oxygen Delivery Method Room Air Room Air BMI result Body Mass Index 22.9 Labs 04/23/23 07:08 Imaging Radiology Impressions: ITS Impressions Head CT 04/24/23 20:53 IMPRESSION: No acute intracranial pathology. Medications Medications Current Medications Acetaminophen (Acetaminophen 325 Mg Tablet) 650 mg PO Q6H PRN PRN Reason: Headache/Pain Mild Scale (1-3) Last Admin: 05/01/23 09:58 Dose: 650 mg Al Hydroxide/Mg Hydroxide (Magnesium Hydrox/Alum Hydrox 30 Ml Oral.Susp) 30 ml PO Q6H PRN PRN Reason: Heartburn/Nausea Benzocaine (Throat Lozenge, Medicated Lozenge) 1 lozenge MUCOUS MEM Q1H PRN PRN Reason: Sore Throat Buprenorphine/Naloxone (Buprenorphine/Naloxone 8/2 Mg Film) 1 film SUBLINGUAL TID@0900,1300,1800 [facility] Last Admin: 05/01/23 13:36 Dose: 1 film Docusate Sodium (Docusate Sodium 100 Mg Capsule) 100 mg PO BID [facility] Last Admin: 05/01/23 09:59 Dose: 100 mg Hydroxyzine HCl (Hydroxyzine Hcl 25 Mg Tablet) 25 mg PO Q6H PRN PRN Reason: Anxiety Last Admin: 04/29/23 14:26 Dose: 25 mg Lisinopril (Lisinopril 10 Mg Tablet) 10 mg PO DAILY [facility]; Protocol Last Admin: 05/01/23 09:59 Dose: 10 mg Magnesium Hydroxide (Milk Of Magnesia 30 Ml Oral.Susp) 30 ml PO DAILY PRN PRN Reason: Constipation Nicotine Polacrilex (Nicotine Polacrilex 2 Mg Gum) 2 mg BUCCAL Q2H PRN PRN Reason: Nicotine Cravings Risperidone (Risperidone 2 Mg Tablet) 2 mg PO BEDTIME [facility] Trazodone HCl (Trazodone Hcl 50 Mg Tablet) 50 mg PO BEDTIME PRN PRN Reason: insomnia Allergies Allergies Allergy/AdvReac Type Severity Reaction Status Date / Time No Known Allergies Allergy Verified 11/30/22 17:08 Assessment & Plan Assessment & Plan (1) Routine medical exam: Status: Acute Code(s): Z00.00 - Encounter for general adult medical examination without abnormal findings Assessment and Plan: 53-year-old male with history of hypertension, history of hepatitis-C treated, history of alcohol use disorder in sustained remission, opioid dependence on Suboxone, and recent crack cocaine use admitted to Psychiatry with consult placed to hospital service for medical H and P. #polysubstance abuse -plan per psychiatry -continue suboxone #HTN -bp reasonably controlled -continue lasix, spironolactone, and lisinopril # recent falls -?r/t substance use -Gait/balance normal without ataxia #Lower urinary tract symptoms -UA unremarkable -suspect r/t BPH -Pt did not report urinary symptoms to me, but did report to nursing -Consider adding tamsulosin 0.4 mg daily if continues reporting symptoms -otherwise outpatient follow-up (2) Crack cocaine use: Status: Acute Code(s): F14.90 - Cocaine use, unspecified, uncomplicated (3) Paranoia: Status: Acute Code(s): F22 - Delusional disorders Plan In conclusion, Jacque meets criteria for hospital level of care for safety and treatment.? Admission workup to be done.? He will meet with his treatment team on 04/24/23. He did not believe that any medication could change his belief on the reality of the situation etc. 04/23: discussed medication options and he was reluctantly accepting of a trial of Risperdal which we discussed including side effects.? 04/24: continues to reluctantly agree to medication. agreeable to remain for several days to rest and see if medication can be helpful to him. remains delusional today regarding threat of harm from others. 04/25: as for yesterday. somewhat euphoric, consider bulmaro. some DFA, agreeable to increase risperidone to 2 mg at HS. 04/26: less euphoric than yesterday, but still with elevated affect. slept well last night. paranoid system appears less powerful than yesterday, did not spontaneously broach it but had to be asked. continue current mgmt. 04/27: appears dysphoric today, in bed asleep late morning. remains delusional, but less willing to express his delusions. continue current mgmt. 04/28/2023: No changes to current plan 04/29: increase risperdal tp 3mg bedtime as appears elated and paranoid 04/30: DC PRN trazodone at HS as it was given to him last night and he feels sedated/groggy/hung over this morning. continues paranoid but with less and less bizarre delusions. pt will DC to his brother's home in [place] when ready for discharge. 05/01: decrease risperidone back to 2 mg QHS due to feeling hung over in the morning. trazodone 50 PRN insomnia as well. went outside today for the first time. sleeping well. planning to discharge to brother's place in [place] once stabilized. Reason for continued inpatient stay Substantial Risk for: inability to function and rapid decompensation Time Spent With Patient Time: Total time managing care of this patient today __35__ minutes.
[2023-05-01 21:55] VITALS: BP 137/87; PULSE 89; RESP 18; TEMP 36.7; O2SAT 98
[2023-05-01] MEDS: risperiDONE 2 MG TABLET PO (22:24)
[2023-05-01] MEDS: Throat Lozenge, Medicated LOZENGE 1 LOZENGE MUCOUS MEM (22:30)
[2023-05-02] MEDS: hydrOXYzine HCL 25 MG TABLET PO ×2 (04:15→20:45)
--- NOTE | 2023-05-02 07:05 | PC.NURSE ---
TW met with pt last night with electronics repair technician to administer HS meds and check in with pt. Reviewed with pt that his risperidone was decreased back to 2 mg due to his c/o grogginess and excessive sleeping, and the prn trazodone was re-ordered and available to him if needed. Also reviewed indications for risperidone and provided printed information about the medications in [place]. Pt reported that he had not been well informed/understood the purpose of the risperidone and was very appreciative for the information and availability of the electronics repair technician. Pt stated that since starting the risperidone at the time of admission he had been having nightmares at night which were disturbing to him (reported that he had never been on risperidone before, but had previously been on trazodone, which was why he was relating the new symptom of nightmares to the risperidone). TW discussed with patient if he still wanted to take the risperidone, which he did agree to because the doctor had lowered the dose. Encouraged pt to discuss this concern with his provider.
[2023-05-02 09:40] VITALS: BP 122/78; PULSE 100; RESP 16; TEMP 37.2; O2SAT 98
[2023-05-02] MEDS: lisinopriL 10 MG TABLET PO (10:21)
[2023-05-02] MEDS: Docusate Sodium 100 MG CAPSULE PO ×2 (10:21→20:45)
[2023-05-02] MEDS: Buprenorphine/Naloxone 8/2 mg FILM 1 FILM SUBLINGUAL ×3 (10:23→18:06)
--- NOTE | 2023-05-02 14:54 | HO.PSYCHPN ---
Subjective Subjective Date of Service: 05/02/23 Reason For Visit: Unspecified anxiety disorder Interim History: calm, cooperative. seen with oracle adf developer and SW. reports poor sleep. c/o nightmares ever since admission but not before. interested in DC of risperidone and start of olanzapine. will start olanzapine 5 mg QHS. willing to go home with brother whenever brother can pick him up. per staff, no change in presentation. isolative. lots of sleeping. not attending groups. anxiety 8, some depression. Mental Status Exam Mental Status Exam Narrative: thin. adequately dressed and groomed in street clothes. cooperative. no PMA/PMR. speech incr rate, nml amount. nml loudness, decr latency. thoughts sometimes linear, others perhaps tangential or derailed. affect hyper-intense, non-labile. no SI/HI/AVH expressed. Diagnostics Vital Signs (24Hr): Vital Signs - 24 hr 05/01/23 21:55 05/02/23 09:40 Temperature 98.0 F 99.0 F Pulse Rate 89 100 Respiratory Rate 18 16 Blood Pressure 137/87 122/78 Pulse Oximetry 98 98 Oxygen Delivery Method Room Air Room Air BMI result Body Mass Index 22.9 Labs 04/23/23 07:08 Imaging Radiology Impressions: ITS Impressions Head CT 04/24/23 20:53 IMPRESSION: No acute intracranial pathology. Medications Medications Current Medications Acetaminophen (Acetaminophen 325 Mg Tablet) 650 mg PO Q6H PRN PRN Reason: Headache/Pain Mild Scale (1-3) Last Admin: 05/01/23 09:58 Dose: 650 mg Al Hydroxide/Mg Hydroxide (Magnesium Hydrox/Alum Hydrox 30 Ml Oral.Susp) 30 ml PO Q6H PRN PRN Reason: Heartburn/Nausea Benzocaine (Throat Lozenge, Medicated Lozenge) 1 lozenge MUCOUS MEM Q1H PRN PRN Reason: Sore Throat Last Admin: 05/01/23 22:30 Dose: 1 lozenge Buprenorphine/Naloxone (Buprenorphine/Naloxone 8/2 Mg Film) 1 film SUBLINGUAL TID@0900,1300,1800 ON LICENSE OF [facility] Last Admin: 05/02/23 12:16 Dose: 1 film Docusate Sodium (Docusate Sodium 100 Mg Capsule) 100 mg PO BID ON LICENSE OF [facility] Last Admin: 05/02/23 10:21 Dose: 100 mg Hydroxyzine HCl (Hydroxyzine Hcl 25 Mg Tablet) 25 mg PO Q6H PRN PRN Reason: Anxiety Last Admin: 05/02/23 04:15 Dose: 25 mg Lisinopril (Lisinopril 10 Mg Tablet) 10 mg PO DAILY YULIET; Protocol Last Admin: 05/02/23 10:21 Dose: 10 mg Magnesium Hydroxide (Milk Of Magnesia 30 Ml Oral.Susp) 30 ml PO DAILY PRN PRN Reason: Constipation Nicotine Polacrilex (Nicotine Polacrilex 2 Mg Gum) 2 mg BUCCAL Q2H PRN PRN Reason: Nicotine Cravings Olanzapine (Olanzapine 5 Mg Tablet) 5 mg PO BEDTIME YULIET Trazodone HCl (Trazodone Hcl 50 Mg Tablet) 50 mg PO BEDTIME PRN PRN Reason: insomnia Allergies Allergies Allergy/AdvReac Type Severity Reaction Status Date / Time No Known Allergies Allergy Verified 11/30/22 17:08 Assessment & Plan Assessment & Plan (1) Routine medical exam: Status: Acute Code(s): Z00.00 - Encounter for general adult medical examination without abnormal findings Assessment and Plan: 53-year-old male with history of hypertension, history of hepatitis-C treated, history of alcohol use disorder in sustained remission, opioid dependence on Suboxone, and recent crack cocaine use admitted to Psychiatry with consult placed to hospital service for medical H and P. #polysubstance abuse -plan per psychiatry -continue suboxone #HTN -bp reasonably controlled -continue lasix, spironolactone, and lisinopril # recent falls -?r/t substance use -Gait/balance normal without ataxia #Lower urinary tract symptoms -UA unremarkable -suspect r/t BPH -Pt did not report urinary symptoms to me, but did report to nursing -Consider adding tamsulosin 0.4 mg daily if continues reporting symptoms -otherwise outpatient follow-up (2) Crack cocaine use: Status: Acute Code(s): F14.90 - Cocaine use, unspecified, uncomplicated (3) Paranoia: Status: Acute Code(s): F22 - Delusional disorders Plan In conclusion, Jacque meets criteria for hospital level of care for safety and treatment.? Admission workup to be done.? He will meet with his treatment team on 04/24/23. He did not believe that any medication could change his belief on the reality of the situation etc. 04/23: discussed medication options and he was reluctantly accepting of a trial of Risperdal which we discussed including side effects.? 04/24: continues to reluctantly agree to medication. agreeable to remain for several days to rest and see if medication can be helpful to him. remains delusional today regarding threat of harm from others. 04/25: as for yesterday. somewhat euphoric, consider bulmaro. some DFA, agreeable to increase risperidone to 2 mg at HS. 04/26: less euphoric than yesterday, but still with elevated affect. slept well last night. paranoid system appears less powerful than yesterday, did not spontaneously broach it but had to be asked. continue current mgmt. 04/27: appears dysphoric today, in bed asleep late morning. remains delusional, but less willing to express his delusions. continue current mgmt. 04/28/2023: No changes to current plan 04/29: increase risperdal tp 3mg bedtime as appears elated and paranoid 04/30: DC PRN trazodone at HS as it was given to him last night and he feels sedated/groggy/hung over this morning. continues paranoid but with less and less bizarre delusions. pt will DC to his brother's home in [place] when ready for discharge. 05/01: decrease risperidone back to 2 mg QHS due to feeling hung over in the morning. trazodone 50 PRN insomnia as well. went outside today for the first time. sleeping well. planning to discharge to brother's place in [place] once stabilized. 05/02: DC risperidone per pt request, c/o nightmares since admission. willing to try olanzapine instead; start 5 mg tonight. planning to discharge sunday to care of his brother, jatin. Reason for continued inpatient stay Substantial Risk for: inability to function and rapid decompensation Time Spent With Patient Time: Total time managing care of this patient today __35__ minutes.
[2023-05-02 20:05] VITALS: BP 125/70; PULSE 75; RESP 18; TEMP 36.7; O2SAT 96
[2023-05-02] MEDS: OLANZapine 5 MG TABLET PO (20:45)
[2023-05-03 07:00] VITALS: BMI 23.0
[2023-05-03 09:00] VITALS: BP 125/78; PULSE 75; RESP 16; TEMP 36.2; O2SAT 97
[2023-05-03] MEDS: Buprenorphine/Naloxone 8/2 mg FILM 1 FILM SUBLINGUAL ×3 (09:07→19:01)
[2023-05-03] MEDS: Docusate Sodium 100 MG CAPSULE PO ×2 (09:07→20:40)
[2023-05-03] MEDS: lisinopriL 10 MG TABLET PO (09:08)
--- NOTE | 2023-05-03 15:05 | HO.PSYCHPN ---
Subjective Subjective Date of Service: 05/03/23 Reason For Visit: Unspecified anxiety disorder Interim History: seen with lan support specialist. pleasant, cooperative, expressing gratitude. reports he slept well last night without nightmares. expressing some paranoia re staff asking questions about his discharge, which led to his lying to staff about when he would be leaving. on being asked about the patient mole who was here to spy on him, he denied the factuality of it, saying it was a false alarm. regarding his comfort level with discharge, he minimizes concerns, saying he'll be in a car and nobody knows he came to [facility] and so it will be fine - but he's not changing his story re what was going on before he came into the hospital. discuss medications and discharge plan for sunday. per staff, isolative. moderate anxiety and depression. eating well, showered. slept well. Mental Status Exam Mental Status Exam Narrative: thin. adequately dressed and groomed in street clothes. cooperative. no PMA/PMR. speech incr rate, nml amount. nml loudness, decr latency. thoughts sometimes linear, others perhaps tangential or derailed. affect hyper-intense, non-labile. mood i feel fine. no SI/HI/AVH. Diagnostics Vital Signs (24Hr): Vital Signs - 24 hr 05/02/23 20:05 05/03/23 09:00 Temperature 98.1 F 97.2 F Pulse Rate 75 75 Respiratory Rate 18 16 Blood Pressure 125/70 125/78 Pulse Oximetry 96 97 Oxygen Delivery Method Room Air Room Air BMI result Body Mass Index 23.0 Labs 04/23/23 07:08 Imaging Radiology Impressions: ITS Impressions Head CT 04/24/23 20:53 IMPRESSION: No acute intracranial pathology. Medications Medications Current Medications Acetaminophen (Acetaminophen 325 Mg Tablet) 650 mg PO Q6H PRN PRN Reason: Headache/Pain Mild Scale (1-3) Last Admin: 05/01/23 09:58 Dose: 650 mg Al Hydroxide/Mg Hydroxide (Magnesium Hydrox/Alum Hydrox 30 Ml Oral.Susp) 30 ml PO Q6H PRN PRN Reason: Heartburn/Nausea Benzocaine (Throat Lozenge, Medicated Lozenge) 1 lozenge MUCOUS MEM Q1H PRN PRN Reason: Sore Throat Last Admin: 05/01/23 22:30 Dose: 1 lozenge Buprenorphine/Naloxone (Buprenorphine/Naloxone 8/2 Mg Film) 1 film SUBLINGUAL TID@0900,1300,1800 [facility] Last Admin: 05/03/23 12:36 Dose: 1 film Docusate Sodium (Docusate Sodium 100 Mg Capsule) 100 mg PO BID [facility] Last Admin: 05/03/23 09:07 Dose: 100 mg Hydroxyzine HCl (Hydroxyzine Hcl 25 Mg Tablet) 25 mg PO Q6H PRN PRN Reason: Anxiety Last Admin: 05/02/23 20:45 Dose: 25 mg Lisinopril (Lisinopril 10 Mg Tablet) 10 mg PO DAILY [facility]; Protocol Last Admin: 05/03/23 09:08 Dose: 10 mg Magnesium Hydroxide (Milk Of Magnesia 30 Ml Oral.Susp) 30 ml PO DAILY PRN PRN Reason: Constipation Nicotine Polacrilex (Nicotine Polacrilex 2 Mg Gum) 2 mg BUCCAL Q2H PRN PRN Reason: Nicotine Cravings Olanzapine (Olanzapine 5 Mg Tablet) 5 mg PO BEDTIME [facility] Last Admin: 05/02/23 20:45 Dose: 5 mg Trazodone HCl (Trazodone Hcl 50 Mg Tablet) 50 mg PO BEDTIME PRN PRN Reason: insomnia Allergies Allergies Allergy/AdvReac Type Severity Reaction Status Date / Time No Known Allergies Allergy Verified 11/30/22 17:08 Assessment & Plan Assessment & Plan (1) Routine medical exam: Status: Acute Code(s): Z00.00 - Encounter for general adult medical examination without abnormal findings Assessment and Plan: 53-year-old male with history of hypertension, history of hepatitis-C treated, history of alcohol use disorder in sustained remission, opioid dependence on Suboxone, and recent crack cocaine use admitted to Psychiatry with consult placed to hospital service for medical H and P. #polysubstance abuse -plan per psychiatry -continue suboxone #HTN -bp reasonably controlled -continue lasix, spironolactone, and lisinopril # recent falls -?r/t substance use -Gait/balance normal without ataxia #Lower urinary tract symptoms -UA unremarkable -suspect r/t BPH -Pt did not report urinary symptoms to me, but did report to nursing -Consider adding tamsulosin 0.4 mg daily if continues reporting symptoms -otherwise outpatient follow-up (2) Crack cocaine use: Status: Acute Code(s): F14.90 - Cocaine use, unspecified, uncomplicated (3) Paranoia: Status: Acute Code(s): F22 - Delusional disorders Plan In conclusion, Jacque meets criteria for hospital level of care for safety and treatment.? Admission workup to be done.? He will meet with his treatment team on 04/24/23. He did not believe that any medication could change his belief on the reality of the situation etc. 04/23: discussed medication options and he was reluctantly accepting of a trial of Risperdal which we discussed including side effects.? 04/24: continues to reluctantly agree to medication. agreeable to remain for several days to rest and see if medication can be helpful to him. remains delusional today regarding threat of harm from others. 04/25: as for yesterday. somewhat euphoric, consider bulmaro. some DFA, agreeable to increase risperidone to 2 mg at HS. 04/26: less euphoric than yesterday, but still with elevated affect. slept well last night. paranoid system appears less powerful than yesterday, did not spontaneously broach it but had to be asked. continue current mgmt. 04/27: appears dysphoric today, in bed asleep late morning. remains delusional, but less willing to express his delusions. continue current mgmt. 04/28/2023: No changes to current plan 04/29: increase risperdal tp 3mg bedtime as appears elated and paranoid 04/30: DC PRN trazodone at HS as it was given to him last night and he feels sedated/groggy/hung over this morning. continues paranoid but with less and less bizarre delusions. pt will DC to his brother's home in [place] when ready for discharge. 05/01: decrease risperidone back to 2 mg QHS due to feeling hung over in the morning. trazodone 50 PRN insomnia as well. went outside today for the first time. sleeping well. planning to discharge to brother's place in [place] once stabilized. 05/02: DC risperidone per pt request, c/o nightmares since admission. willing to try olanzapine instead; start 5 mg tonight. planning to discharge sunday to care of his brother, jatin. 05/03: slept well last night, no nightmares. planning for discharge sunday to care of his brother. meds reviewed, reconciled, prescribed. feeling well, less paranoid than at admission. Reason for continued inpatient stay Substantial Risk for: inability to function and rapid decompensation Time Spent With Patient Time: Total time managing care of this patient today __35__ minutes.
--- NOTE | 2023-05-03 15:13 | P.DS_ITS ---
DS: Providers Provider Date of Service: 05/05/23 <Marilu Carreon - Last Filed: 05/29/23 06:46> Date of admission: 04/22/23 15:51 <Sincere Anton - Last Filed: 05/29/23 16:18> Date of discharge: 05/05/23 <Marilu Carreon - Last Filed: 05/29/23 06:46> Primary care physician: [facility] <Sincere Anton - Last Filed: 05/29/23 16:18> Consults: 04/22/23 16:12 Consult to Hospitalist Routine Comment: Consulting Provider: Hospitalist Reason For Exam: admission <Sincere Anton - Filed: 05/29/23 16:18> DS: Diagnosis Discharge Diagnosis (1) Routine medical exam: Status: Inactive <Sincere Anton - Filed: 05/29/23 16:18> (2) Crack cocaine use: Status: Acute <Sincere Anton - Filed: 05/29/23 16:18> (3) Paranoia: Status: Acute <Sincere Anton - Filed: 05/29/23 16:18> DS: Medications Discharge Medications Home Medications: Previous Rx's Medication Instructions Recorded buprenorphine 8 mg-naloxone 2 mg 1 film buccal TID 15 days #45 ea 05/03/23 sublingual film docusate sodium 100 mg capsule 100 mg PO BID constipation 30 days 05/03/23 #60 caps lisinopril 10 mg tablet 10 mg PO DAILY 30 days #30 tabs 05/03/23 olanzapine 5 mg tablet 5 mg PO BEDTIME 30 days #30 tabs 05/03/23 <Sincere Anton - Last Filed: 05/29/23 16:18> Mental Status Exam Mental Status Exam Narrative: thin. adequately dressed and groomed in street clothes. cooperative. no PMA/PMR. speech incr rate, nml amount. nml loudness, decr latency. thoughts sometimes linear, others perhaps tangential or derailed. affect hyper-intense, non-labile. mood i feel fine. no SI/HI/AVH. <Marilu Carreon - Last Filed: 05/29/23 06:46> Data Imaging Diagnostic Imaging Impressions Head CT 04/24/23 20:53 IMPRESSION: No acute intracranial pathology. <Sincere Anton - Last Filed: 05/29/23 16:18> DS: Summary Hospital Course Hospital Course: Subjective Notes: Conditional Voluntary Healthcare Proxy: No Guardianship: No Medical Problems Affecting Mental Status: No Narrative: Jacque is a 53-year-old , single, father of 2. This is his 1st psychiatric admission. 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 He is 100% convinced that these are happening and not imagined. He does have history of heroin use and dependence but has been heroin free for 3 years and is on Suboxone 03/21 t.i.d.. In the past 3 months he has been using crack cocaine and when questioned whether he would consider that it may be related to that he was adamantly against that belief. He is not on any psychotropics and has not been in the past. He denies any other substances including alcohol. Prior to going to the emergency room he asked somebody in a restaurant to call an ambulance because he was having thoughts of going to a bridge in jumping off. No prior history of suicide attempts. He has been eating and sleeping adequately. He denies any recent triggers or stressors. Because of his condition he lost his job and was unable to pay his rent and he has been homeless. Past Psychiatric History: None Medical Evaluation Reviewed: Hospitalist Feroz Pending HOSPITAL COURSE On the unit, pt was admitted on a CV and placed on 15 minutes checks for safety. After discussing risks, benefits and alternative treatment options, pt was st arted on olanzapine 5mg po qhs. His affect gradually presented as much less paranoid, less ideas about people going after him or trying to hurt him. He was sleeping and eating well. He denied SI/HI throughout this admission. He was able to sleep well. He was increasingly more visible on the unit and social with select peers. Collateral information was gathered from his brother who agreed that pt appeared in much improved conditions. There were no incidences of disruptive behaviors nor need for restraints. <Sincere Anton - Last Filed: 05/29/23 16:18> Status at Discharge Cognitive/behavioral status at discharge: Pt with brighter, less paranoid affect. No SI/HI. Some residual paranoid ideas still present. No overt VH/AH. Pt sleeping and eating well. No aggression towards self or others. <Marilu Carreon - Last Filed: 05/29/23 06:46> Functional status at discharge: independent ambulation <Marilu Carreon - Last Filed: 05/29/23 06:46> Overall status at discharge: patient is progressing back to baseline <Marilu Carreon - Last Filed: 05/29/23 06:46> Time Spent with Patient Time attestation: Total time managing care of this patient today ____ minutes. <Sincere Anton - Last Filed: 05/29/23 16:18> Total time managing care of this patient today __30__ minutes. <Marilu Carreon - Last Filed: 05/29/23 06:46> Time spent: Greater than 30 minutes <Marilu Carreon - Last Filed: 05/29/23 06:46> Discharge Plan Discharge Anticipated Discharge Date/Time: 05/05/23 11:45 <Sincere Anton - Andres Filed: 05/29/23 16:18> Patient Disposition: Home, Self-Care <Sincere Anton - Last Filed: 05/29/23 16:18> Discharge Diagnosis: Psychotic Disorder NOS Cocaine Use Disorder Opioid Use Disorder, on Partial Agonist Therapy <Sincere Anton - Last Filed: 05/29/23 16:18> Psychotic Disorder NOS Cocaine Use Disorder Opioid Use Disorder, on Partial Agonist Therapy <Marilu Carreon - Last Filed: 05/29/23 06:46> Referrals: [facility] [Primary Care Provider] - 1 Week (walk in hours Sunday through Sunday 830AM - 430PM OR go to a pcp in your new area) <Sincere Anton - Last Filed: 05/29/23 16:18> Discharge Medications: New olanzapine 5 mg Tablet 5 mg PO BEDTIME 30 Days Qty: 30 0RF lisinopril 10 mg Tablet 10 mg PO DAILY 30 Days Qty: 30 0RF Protocol: Hold for SBP< HOLD for SBP < : 90 Continued docusate sodium 100 mg capsule 100 mg PO BID 30 Days Qty: 60 0RF buprenorphine-naloxone 8-2 mg film 1 film buccal TID 15 Days Qty: 45 0RF <Sincere Anton - Last Filed: 05/29/23 16:18> Discharge Orders: Discharge Order (Routine); Ordered 05/05/23 Ordered By: Sincere Anton <Sincere Anton - Last Filed: 05/29/23 16:18> Diet: Advance to usual diet <Sincere Anton - Last Filed: 05/29/23 16:18> Advance to usual diet <Marilu Carreon - Last Filed: 05/29/23 06:46> Activity on Discharge: As tolerated <Sincere Anton - Last Filed: 05/29/23 16:18> As tolerated <Marilu Carreon - Last Filed: 05/29/23 06:46> Stand Alone Forms: Patient Portal Discharge page, Community Support <Sincere Anton - Last Filed: 05/29/23 16:18> Care Plan Goals: remain safe, stable, and sober in the outpatient treatment setting <Sincere Anton - Last Filed: 05/29/23 16:18> Health Concerns: Hypertension <Sincere Anton - Last Filed: 05/29/23 16:18> Plan of Treatment: take medications as prescribed. establish relationships with providers in your new area of residence. <Sincere Anton - Last Filed: 05/29/23 16:18> Assessment: not at imminent risk of harm to self or others. <Sincere Anton - Last Filed: 05/29/23 16:18> Discharge Date/Time: 05/05/23 10:45 <Sincere Anton - Last Filed: 05/29/23 16:18>
[2023-05-03 20:00] VITALS: BP 128/94; PULSE 99; RESP 18; TEMP 36.6; O2SAT 95
[2023-05-03] MEDS: OLANZapine 5 MG TABLET PO (20:40)
[2023-05-04 08:10] VITALS: BP 112/60; PULSE 80; RESP 18; TEMP 36.8; O2SAT 98
[2023-05-04] MEDS: Docusate Sodium 100 MG CAPSULE PO ×2 (09:00→22:25)
[2023-05-04] MEDS: Buprenorphine/Naloxone 8/2 mg FILM 1 FILM SUBLINGUAL ×3 (09:00→18:27)
[2023-05-04] MEDS: lisinopriL 10 MG TABLET PO (09:00)
--- NOTE | 2023-05-04 13:04 | P.PNPSI_ITS ---
Subjective Subjective Date of Service: 05/04/23 Reason For Visit: Unspecified anxiety disorder Subjective Notes: Conditional Voluntary Interim History: Pt reports nightmares of police coming after him were also happening during the day. He reports it does not make sense police was coming after him as he has not committed a crime and he has a clean record, but he still reports that it is suspicious that random people on the streets were taking pictures of him. He denies SI/HII. He will go tomorrow with his brother but first will go to picker/puller his certificate and other documents. No aggression towards self or others. Review of Systems Review of Systems General: No fevers, malaise, unintentional weight loss HEENT: No blurred vision, diplopia. No sore throat, nasal congestion, rhinorrhea, sinus pain, ear pain Cardiovascular: No chest pain, palpitations, or leg edema Respiratory: No shortness of breath, wheezing, cough GI: No abdominal pain, nausea, vomiting, diarrhea, constipation, melena, hematochezia : No dysuria, hematuria, increased urinary frequency, decreased urinary output MSK: No myalgia, back pain Neuro: No headaches, weakness, paresthesias Skin: No rashes or lesions Yes all other systems are reviewed and are negative Mental Status Exam Mental Status Exam Narrative: thin. adequately dressed and groomed in street clothes. cooperative. no PMA/PMR. speech incr rate, nml amount. nml loudness, decr latency. thoughts sometimes linear, others perhaps tangential or derailed. affect hyper-intense, non-labile. mood i feel fine. no SI/HI/AVH. Diagnostics Vital Signs (24Hr): Vital Signs - 24 hr 05/03/23 20:00 05/04/23 08:10 Temperature 97.8 F 98.2 F Pulse Rate 99 80 Respiratory Rate 18 18 Blood Pressure 128/94 H 112/60 Pulse Oximetry 95 98 Oxygen Delivery Method Room Air Room Air BMI result Body Mass Index 23.0 Labs 04/23/23 07:08 Imaging Radiology Impressions: ITS Impressions Head CT 04/24/23 20:53 IMPRESSION: No acute intracranial pathology. Medications Medications Current Medications Acetaminophen (Acetaminophen 325 Mg Tablet) 650 mg PO Q6H PRN PRN Reason: Headache/Pain Mild Scale (1-3) Last Admin: 05/01/23 09:58 Dose: 650 mg Al Hydroxide/Mg Hydroxide (Magnesium Hydrox/Alum Hydrox 30 Ml Oral.Susp) 30 ml PO Q6H PRN PRN Reason: Heartburn/Nausea Benzocaine (Throat Lozenge, Medicated Lozenge) 1 lozenge MUCOUS MEM Q1H PRN PRN Reason: Sore Throat Last Admin: 05/01/23 22:30 Dose: 1 lozenge Buprenorphine/Naloxone (Buprenorphine/Naloxone 8/2 Mg Film) 1 film SUBLINGUAL TID@0900,1300,1800 [facility] Last Admin: 05/04/23 09:00 Dose: 1 film Docusate Sodium (Docusate Sodium 100 Mg Capsule) 100 mg PO BID [facility] Last Admin: 05/04/23 09:00 Dose: 100 mg Hydroxyzine HCl (Hydroxyzine Hcl 25 Mg Tablet) 25 mg PO Q6H PRN PRN Reason: Anxiety Last Admin: 05/02/23 20:45 Dose: 25 mg Lisinopril (Lisinopril 10 Mg Tablet) 10 mg PO DAILY [facility]; Protocol Last Admin: 05/04/23 09:00 Dose: 10 mg Magnesium Hydroxide (Milk Of Magnesia 30 Ml Oral.Susp) 30 ml PO DAILY PRN PRN Reason: Constipation Nicotine Polacrilex (Nicotine Polacrilex 2 Mg Gum) 2 mg BUCCAL Q2H PRN PRN Reason: Nicotine Cravings Olanzapine (Olanzapine 5 Mg Tablet) 5 mg PO BEDTIME [facility] Last Admin: 05/03/23 20:40 Dose: 5 mg Tetrahydrozoline HCl (Tetrahydrozoline Hcl 0.05% Oph 15 Ml Drpbtl) 1 drop EYE- BOTH QID PRN PRN Reason: Dry Eyes Trazodone HCl (Trazodone Hcl 50 Mg Tablet) 50 mg PO BEDTIME PRN PRN Reason: insomnia Allergies Allergies Allergy/AdvReac Type Severity Reaction Status Date / Time No Known Allergies Allergy Verified 11/30/22 17:08 Assessment & Plan Assessment & Plan (1) Substance-induced psychotic disorder: Status: Acute Code(s): F19.959 - Other psychoactive substance use, unspecified with psychoactive substance-induced psychotic disorder, unspecified (2) Routine medical exam: Status: Acute Code(s): Z00.00 - Encounter for general adult medical examination without abnormal findings Assessment and Plan: 53-year-old male with history of hypertension, history of hepatitis-C treated, history of alcohol use disorder in sustained remission, opioid dependence on Suboxone, and recent crack cocaine use admitted to Psychiatry with consult placed to hospital service for medical H and P. #polysubstance abuse -plan per psychiatry -continue suboxone #HTN -bp reasonably controlled -continue lasix, spironolactone, and lisinopril # recent falls -?r/t substance use -Gait/balance normal without ataxia #Lower urinary tract symptoms -UA unremarkable -suspect r/t BPH -Pt did not report urinary symptoms to me, but did report to nursing -Consider adding tamsulosin 0.4 mg daily if continues reporting symptoms -otherwise outpatient follow-up (3) Crack cocaine use: Status: Acute Code(s): F14.90 - Cocaine use, unspecified, uncomplicated Plan In conclusion, Jacque meets criteria for hospital level of care for safety and treatment.? Admission workup to be done.? He will meet with his treatment team on 04/24/23. He did not believe that any medication could change his belief on the reality of the situation etc. 04/23: discussed medication options and he was reluctantly accepting of a trial of Risperdal which we discussed including side effects.? 04/24: continues to reluctantly agree to medication. agreeable to remain for several days to rest and see if medication can be helpful to him. remains delusional today regarding threat of harm from others. 04/25: as for yesterday. somewhat euphoric, consider bulmaro. some DFA, agreeable to increase risperidone to 2 mg at HS. 04/26: less euphoric than yesterday, but still with elevated affect. slept well last night. paranoid system appears less powerful than yesterday, did not spontaneously broach it but had to be asked. continue current mgmt. 04/27: appears dysphoric today, in bed asleep late morning. remains delusional, but less willing to express his delusions. continue current mgmt. 04/28/2023: No changes to current plan 04/29: increase risperdal tp 3mg bedtime as appears elated and paranoid 04/30: DC PRN trazodone at HS as it was given to him last night and he feels sedated/groggy/hung over this morning. continues paranoid but with less and less bizarre delusions. pt will DC to his brother's home in [place] when ready for discharge. 05/01: decrease risperidone back to 2 mg QHS due to feeling hung over in the morning. trazodone 50 PRN insomnia as well. went outside today for the first time. sleeping well. planning to discharge to brother's place in [place] once stabilized. 05/02: DC risperidone per pt request, c/o nightmares since admission. willing to try olanzapine instead; start 5 mg tonight. planning to discharge sunday to care of his brotherjatin. 05/03: slept well last night, no nightmares. planning for discharge sunday to care of his brother. meds reviewed, reconciled, prescribed. feeling well, less paranoid than at admission. 05/04 continue tx. dc tomorrow Reason for continued inpatient stay Substantial Risk for: inability to function Time Spent With Patient Time: Total time managing care of this patient today ____ minutes.
[2023-05-04 22:10] VITALS: BP 121/80; PULSE 95; RESP 18; TEMP 37.6; O2SAT 96
[2023-05-04] MEDS: OLANZapine 5 MG TABLET PO (22:26)
[2023-05-04] MEDS: Acetaminophen 325 MG TABLET 650 MG PO (22:26)
[2023-05-04] MEDS: Tetrahydrozoline HCl 0.05% Oph 15 ML DRPBTL 1 DROP EYE-BOTH (23:05)
[2023-05-05 08:20] VITALS: BP 124/90; PULSE 100; RESP 16; TEMP 36.5; O2SAT 98
[2023-05-05] MEDS: Buprenorphine/Naloxone 8/2 mg FILM 1 FILM SUBLINGUAL (08:38)
[2023-05-05] MEDS: lisinopriL 10 MG TABLET PO (08:38)
[2023-05-05] MEDS: Docusate Sodium 100 MG CAPSULE PO (08:38)
--- NOTE | 2023-05-05 11:22 | PC.NURSE ---
Pt seen with foot worker. All discharge plans including medications, appointments and crisis plan reviewed and patient verbalizes understanding. He denies ideation, plan or intent to harm self or others. He denies physical complaint.
== END 2023-05-05 10:45 | disposition home or self-care (01) | DRG 760 ==
PROVIDERS: Psychiatry & Neurology Psychiatry; Admitting Provider Psychiatry & Neurology Psychiatry; Visit Provider Psychiatry & Neurology Psychiatry
DX: F22 Delusional disorders (principal); F10.21 Alcohol dependence, in remission; F11.20 Opioid dependence, uncomplicated; F17.210 Nicotine dependence, cigarettes, uncomplicated; F19.10 Other psychoactive substance abuse, uncomplicated; I10 Essential (primary) hypertension; N40.1 Benign prostatic hyperplasia with lower urinary tract symptoms; Z71.6 Tobacco abuse counseling; Z59.02 Unsheltered homelessness; Z86.19 Personal history of other infectious and parasitic diseases
CPT/HCPCS: 36415; 70450; 80053; 80061; 80307; 81001; 84443

== ENCOUNTER → 2023-04-22 15:51 | Outpatient (BNV) | payer OTHER, SELFPAY | PROVIDERS: Admitting Provider Psychiatry & Neurology Psychiatry; Visit Provider Psychiatry & Neurology Psychiatry | DX: F22 Delusional disorders (principal); F14.90 Cocaine use, unspecified, uncomplicated | CPT/HCPCS: 99231; 99232 ==

== ENCOUNTER → 2023-04-22 15:51 | Outpatient (BNV) | payer MEDICAID, SELFPAY | PROVIDERS: Admitting Provider Psychiatry & Neurology Psychiatry; Visit Provider Physician Assistant | DX: Z00.00 Encounter for general adult medical examination without abnormal findings (principal) | CPT/HCPCS: 99222 ==